=== PATIENT | female | born 1940 | race Caucasian/White ===

== ENCOUNTER 2019-11-21 13:19 | Outpatient (REF) | payer MEDICARE, OTHER, SELFPAY ==
[2019-11-21 16:35] LABS: Hemoglobin 12.9 g/dl (12.0-16.0); Mean Corpuscular HGB Conc 31.5 g/dl (31.0-35.0); Mean Corpuscular Hemoglobin 29.3 pg (27.0-33.0); Mean Platelet Volume 9.7 fL (9.4-12.3); Platelet Count 229 X10*3/uL (160-400); Red Blood Count 4.41 X10*6/uL (4.20-5.50); Red Cell Distribution Width 13.2 % (11.0-16.0); White Blood Count 7.3 X10*3/uL (4.8-10.8)
[2019-11-21 16:56] LABS: Anion Gap 10 (12-20); Blood Urea Nitrogen 21 mg/dL (9-16); Calcium 8.9 mg/dL (8.4-10.2); Carbon Dioxide 27 mmol/L (22-29); Chloride 108 mmol/L (96-108); Cholesterol 140 mg/dL; Estimated Glomerular Filt Rate 51; Glucose Random 72 mg/dL (60-115); HDL Cholesterol 51 mg/dL; LDL Cholesterol Calculated 69 mg/dl; Potassium 4.3 mmol/l (3.3-5.1); Sodium 141 mmol/L (135-145); Triglycerides 102 mg/dL
== END 2019-11-21 13:20 | disposition home or self-care (01) ==
LOC: HO.HMGCLDS 13:19
PROVIDERS: PCP Internal Medicine; Visit Provider Internal Medicine Cardiovascular Disease
DX: I25.119 Atherosclerotic heart disease of native coronary artery with unspecified angina pectoris (principal); I10 Essential (primary) hypertension
CPT/HCPCS: 36415; 80048; 80061; 85027

== ENCOUNTER 2020-03-25 | Outpatient (REF) | payer MEDICARE, OTHER, SELFPAY | END 2020-03-25 00:01 | disposition home or self-care (01) | LOC: HO.VC | PROVIDERS: Visit Provider Internal Medicine | DX: Z23 Encounter for immunization (principal) | CPT/HCPCS: 0011A ==

== ENCOUNTER 2020-04-14 16:24 | Outpatient (REF) | payer MEDICARE, OTHER, SELFPAY ==
--- NOTE | ~2020-04-14 | MM_ITS ---
EXAMINATION: MM SCREENING DIGITAL BREAST TOMOSYNTHESIS, BILATERAL CLINICAL INFORMATION: Screening. Asymptomatic. The lifetime risk of breast cancer based on the Tyrer-Cuzick Model is 3%. COMPARISON: Mammography: 09/21/2018, 08/08/2017, 05/27/2016 TECHNIQUE: Digital breast tomosynthesis is performed in both the craniocaudal and mediolateral oblique views along with computer-aided detection (CAD). Synthesized 2D images are generated from the tomosynthesis. FINDINGS: There are scattered areas of fibroglandular density (ACR BI-RADS breast composition Category b). Breast tissue composition borders on predominantly fatty. Background fibroglandular and stromal densities are stable. There is no interval mass or architectural abnormality. There is a dermal lesion overlying the mid outer right breast on CC view. There are scattered benign isolated and grouped round calcifications again noted. No significant changes. MM/MM tomosynthesis screening BI IMPRESSION: No mammographic evidence of malignancy. ASSESSMENT: BI-RADS 2: Benign RECOMMENDATION: Routine annual mammography screening. This patient's information was entered into a reminder system with a target due date for their next mammogram.
== END 2020-04-14 16:25 | disposition home or self-care (01) ==
LOC: HO.MAMMO 16:24
PROVIDERS: PCP Internal Medicine; Visit Provider Internal Medicine
DX: Z12.31 Encounter for screening mammogram for malignant neoplasm of breast (principal)
CPT/HCPCS: 77063; 77067

== ENCOUNTER 2020-04-21 | Outpatient (REF) | payer MEDICARE, OTHER, SELFPAY | END 2020-04-21 00:01 | disposition home or self-care (01) | LOC: HO.VC | PROVIDERS: Visit Provider Internal Medicine | DX: Z23 Encounter for immunization (principal) | CPT/HCPCS: 0012A ==

== ENCOUNTER → 2020-05-18 15:12 | Outpatient (BNVA) | payer MEDICARE, OTHER, SELFPAY | PROVIDERS: PCP Internal Medicine; Visit Provider Internal Medicine Cardiovascular Disease | DX: I25.10 Atherosclerotic heart disease of native coronary artery without angina pectoris (principal); I10 Essential (primary) hypertension | CPT/HCPCS: 93005; 99212 ==

== ENCOUNTER 2020-07-01 10:05 | Outpatient (REF) | payer MEDICARE, OTHER, SELFPAY ==
[2020-07-01 13:57] LABS: MANUAL DIFF FLAG NO
[2020-07-01 14:03] LABS: Basophils Percent Auto 0.6 % (0-2); Eosinophils Absolute Auto 0.1 X10*3/uL (0.0-0.4); Eosinophils Percent Auto 1.9 % (0-4); Hematocrit 42.1 % (37-47); Hemoglobin 13.2 g/dl (12.0-16.0); Imm Gran Abs Auto 0.04 X10*3/uL (0.00-0.03); Imm Gran Pct Auto 0.6 % (0.0-0.4); Lymphocytes Absolute Auto 1.8 X10*3/uL (1.2-4.9); Lymphocytes Percent Auto 26.3 % (20-40); Mean Corpuscular HGB Conc 31.4 g/dl (31.0-35.0); Mean Corpuscular Hemoglobin 29.3 pg (27.0-33.0); Mean Corpuscular Volume 93.3 fL (80-98); Mean Platelet Volume 9.8 fL (9.4-12.3); Monocytes Absolute Auto 0.6 X10*3/uL (0.1-1.2); Monocytes Percent Auto 7.9 % (2-11); Neutrophils Absolute Auto 4.3 X10*3/uL (2.0-8.3); Neutrophils Percent Auto 62.7 % (45-73); Platelet Count 245 X10*3/uL (160-400); Red Blood Count 4.51 X10*6/uL (4.20-5.50); Red Cell Distribution Width 14.1 % (11.0-16.0); White Blood Count 6.9 X10*3/uL (4.8-10.8)
[2020-07-01 14:48] LABS: Thyroid Stimulating Hormone 1.31 uIU/mL (0.32-4.0)
[2020-07-01 14:52] LABS: Alanine Aminotransferase 13 U/L (0-31); Albumin Level 3.8 g/dL (3.5-5.0); Alkaline Phosphatase 72 U/L (39-117); Anion Gap 12 (12-20); Aspartate Amino Transferase 18 U/L (5-31); Bilirubin Total 0.7 mg/dL (0.0-1.0); Blood Urea Nitrogen 22 mg/dL (9-16); Calcium 9.5 mg/dL (8.4-10.2); Carbon Dioxide 26 mmol/L (22-29); Chloride 109 mmol/L (96-108); Cholesterol 141 mg/dL; Estimated Glomerular Filt Rate 56; Glucose Fasting 89 mg/dL (60-99); HDL Cholesterol 51 mg/dL; LDL Cholesterol Calculated 76 mg/dl; Potassium 4.3 mmol/L (3.3-5.1); Sodium 143 mmol/L (135-145); Total Protein 5.8 g/dL (6.5-8.0); Triglycerides 74 mg/dL
[2020-07-05 13:36] LABS: Vitamin D 25-OH, D2 <4 ng/mL; Vitamin D 25-OH, D3 21 ng/mL; Vitamin D 25-OH, Total 21 ng/mL (30-100)
== END 2020-07-01 10:06 | disposition home or self-care (01) ==
LOC: HO.10HDL 10:05
PROVIDERS: Visit Provider Internal Medicine
DX: R53.83 Other fatigue (principal); R61 Generalized hyperhidrosis; E78.5 Hyperlipidemia, unspecified; I10 Essential (primary) hypertension; E55.9 Vitamin D deficiency, unspecified
CPT/HCPCS: 36415; 80053; 80061; 82306; 84443; 85025

== ENCOUNTER 2020-08-07 07:50 | Outpatient (REF) | payer MEDICARE, OTHER, SELFPAY ==
--- NOTE | ~2020-08-07 | MM_ITS ---
EXAMINATION: MM DIAGNOSTIC DIGITAL BREAST TOMOSYNTHESIS, RIGHT US DIAGNOSTIC ULTRASOUND BREAST, RIGHT CLINICAL INFORMATION: 79-year-old with palpable lump upper outer right breast. The lifetime risk of breast cancer based on the Tyrer-Cuzick Model is 2%. COMPARISON: Mammography: 04/14/2020, 09/21/2018 TECHNIQUE: Digital breast tomosynthesis is performed in both the craniocaudal and mediolateral oblique views along with computer-aided detection (CAD). Synthesized 2D images are generated from the tomosynthesis. Additional right MLO view is provided. Symptom marker placed over the site of palpable concern. Ultrasound is targeted to the area clinically palpable concern upper outer right breast. Grayscale imaging and color Doppler are performed without and with harmonics. FINDINGS: There are scattered areas of fibroglandular density (ACR BI-RADS breast composition Category b). Breast tissue composition borders on predominantly fatty. There is a new superficial subdermal irregular focal asymmetric density in area of palpable concern upper outer breast with overall size 1.3 x 1.2 x 0.7 cm. There is some internal mixed fat attenuation. There is no skin thickening or retraction. No associated calcification. Finding is new from recent mammography 04/14/2020. Ultrasound demonstrates an oval uniformly hyperechoic lesion just beneath the skin at site of palpable concern with overall dimensions 2.2 x 2.0 x 1.0 cm. There is fine peripheral decreased echogenicity and a few punctate cystic foci under 3 mm. Margins are macrolobulated. No definite increased or decreased through transmission of sound. There is no skin thickening or edema tracking in soft tissue planes. No hyperemia on color Doppler. No focal duct ectasia. Results are discussed with the patient and her daughter at time of visit. The imaging findings are most suggestive of posttraumatic fat necrosis. Patient was queried on trauma history. Although the patient does not recall a specific incident of trauma, she does note recent visible ecchymosis at the site of current palpable concern. The ecchymosis has subsequently resolved. Management plan is short interval follow-up right breast imaging in 3 months. MM/MM tomosynthesis diagnostic RT IMPRESSION: Mammographic and ultrasound findings at site of clinical concern are most suggestive of fat necrosis, sequela from prior trauma. Patient does recall transient ecchymosis at site of palpable concern. ASSESSMENT: BI-RADS 3: Probably Benign RECOMMENDATION: 1. Diagnostic right mammography in 3 months. 2. Targeted right breast ultrasound at same visit if warranted. This patient's information was entered into a reminder system with a target due date for their next mammogram.
== END 2020-08-07 07:51 | disposition home or self-care (01) ==
LOC: HO.MAMMO 07:50
PROVIDERS: Visit Provider Internal Medicine
DX: N63.11 Unspecified lump in the right breast, upper outer quadrant (principal)
CPT/HCPCS: 76642; 77061; 77065

== ENCOUNTER → 2020-10-27 13:39 | Outpatient (BNVA) | payer MEDICARE, OTHER, SELFPAY | PROVIDERS: PCP Internal Medicine; Referring Provider Internal Medicine; Visit Provider Internal Medicine Cardiovascular Disease | DX: I25.10 Atherosclerotic heart disease of native coronary artery without angina pectoris (principal); I10 Essential (primary) hypertension | CPT/HCPCS: 99212 ==

== ENCOUNTER 2020-11-09 13:21 | Outpatient (REF) | payer MEDICARE, OTHER, SELFPAY ==
--- NOTE | ~2020-11-09 | US_ITS ---
EXAMINATION: US DIAGNOSTIC ULTRASOUND BREAST, RIGHT CLINICAL INFORMATION: Three-month follow-up right breast lesion. COMPARISON: August 07, 2020. TECHNIQUE: Ultrasound of the breast is performed with real-time nunez scale imaging and color Doppler. FINDINGS: There is no focal suspicious finding. There is no solid mass, architectural abnormality, duct ectasia, or edema in the soft tissue planes. Results are discussed with the patient at time of visit. US/US breast RT limited IMPRESSION: No persistent ultrasound abnormality of the right breast. ASSESSMENT: BI-RADS 1: Negative RECOMMENDATION: Routine annual mammography screening due in 12 months. This patient's information was entered into a reminder system with a target due date for their next mammogram.
--- NOTE | ~2020-11-09 | MM_ITS ---
EXAMINATION: MM DIAGNOSTIC DIGITAL BREAST TOMOSYNTHESIS, RIGHT US TARGETED BREAST, RIGHT CLINICAL INFORMATION: Three-month follow up right breast lesion, question related to trauma. The lifetime risk of breast cancer based on the Tyrer-Cuzick Model is 2.2%. COMPARISON: Mammography: 08/07/2020 and studies dating back to 03/30/2013. TECHNIQUE: Digital breast tomosynthesis is performed in both the craniocaudal and mediolateral oblique views along with computer-aided detection (CAD). Synthesized 2-D images are generated from the tomosynthesis. Targeted right breast ultrasound. FINDINGS: The breasts are almost entirely fatty (ACR BI-RADS breast composition Category a). There are no significant masses, abnormal calcifications, or other abnormalities. ULTRASOUND: Targeted right breast ultrasound did not demonstrate any persistent abnormal mass and finding from previous study was likely related to trauma which has now healed. Results are provided to the patient at time of visit by the technologist. MM/MM tomosynthesis diagnostic RT IMPRESSION: No specific mammography or ultrasound findings to suggest malignancy. ASSESSMENT: BI-RADS 1: Negative. RECOMMENDATION: Routine annual mammography screening due in 12 months. This patient's information was entered into a reminder system with a target due date for their next mammogram.
== END 2020-11-09 13:22 | disposition home or self-care (01) ==
LOC: HO.MAMMO 13:21
PROVIDERS: PCP Internal Medicine; Visit Provider Internal Medicine
DX: N64.89 Other specified disorders of breast (principal)
CPT/HCPCS: 76642; 77061; 77065

== ENCOUNTER 2021-01-10 17:00 | Outpatient (REF) | payer MEDICARE, OTHER, SELFPAY ==
[2021-01-11 10:48] LABS: Appearance Urine CLOUDY; Color Urine YELLOW; Glucose Urine UA NEG (NEG); Leukocyte Esterase Urine TRACE (NEG); Nitrite Urine NEG (NEG); Specific Gravity - Urine >= 1.030 (1.005-1.025); UACC Culture Trigger YES; Urine Blood TRACE (NEG); Urine Ketones NEG (NEG); Urine Protein NEG (NEG-TRACE)
[2021-01-11 11:34] LABS: Amorphous Sediment Urine 2+ /LPF; Bacteria Urine 2+ /LPF; Calcium Oxalate Crystals Urine 1+ /LPF; Squamous Epithelial Cell Urine TRACE /LPF
== END 2021-01-10 17:01 | disposition home or self-care (01) ==
LOC: HO.10HDLNP 17:00
PROVIDERS: Visit Provider Nurse Practitioner Family
DX: I10 Essential (primary) hypertension (principal)
CPT/HCPCS: 81001; 87086

== ENCOUNTER → 2021-04-26 13:40 | Outpatient (BNVA) | payer MEDICARE, OTHER, SELFPAY | PROVIDERS: PCP Internal Medicine; Referring Provider Internal Medicine; Visit Provider Internal Medicine Cardiovascular Disease | DX: I25.10 Atherosclerotic heart disease of native coronary artery without angina pectoris (principal); I10 Essential (primary) hypertension; I44.4 Left anterior fascicular block | CPT/HCPCS: 93005; 99212 ==

== ENCOUNTER 2021-05-04 15:59 | Outpatient (REF) | payer MEDICARE, OTHER, SELFPAY ==
--- NOTE | ~2021-05-04 | XR_ITS ---
EXAMINATION: XR BILATERAL SHOULDER, CERVICAL SPINE AND RIGHT KNEE CLINICAL INFORMATION: Pain in shoulders, neck and the right knee. COMPARISON: None. TECHNIQUE: 4 views each shoulder. Right knee 2 views. Cervical spine 3 views. FINDINGS: Right shoulder: There is moderate loss of AC joint space with moderate periarticular spurring. The glenohumeral joint space is minimally reduced. No loose bodies or bony erosive changes seen. There is a vertical lucency adjacent to the AC joint suspicious for a fracture of indeterminate age. Left shoulder: There is moderate loss of AC joint space and mild loss of left glenohumeral joint space consistent with arthritis. There is mild periarticular hypertrophic changes left AC joint. No visible acute fracture, dislocation or lytic process seen. The soft tissues are normal. Cervical spine: There is anterior C5-C7 bony fusion with ventral plate extending from C5 through C7 vertebrae and intervening bone graft. The prevertebral and the paravertebral soft tissues are normal. Right knee: There is mild loss of tricompartment joint space with mild medial compartment periarticular spurring. No loose bodies, bony erosive changes or joint effusion seen. There is mild osteopenia. XR/XR cervical spine 3V IMPRESSION: [id number] degenerative changes right knee with mild periarticular spurring medial compartment. No joint effusion or acute fracture. Mild degenerative changes bilateral AC joints and right glenohumeral joint. There is suspicion of right distal clavicular fracture of indeterminate age. Fusion C5-C6 and C6-C7 disc levels with ventral plating and screws for ventral stabilization.
--- NOTE | ~2021-05-04 | XR_ITS ---
EXAMINATION: XR BILATERAL SHOULDER, CERVICAL SPINE AND RIGHT KNEE CLINICAL INFORMATION: Pain in shoulders, neck and the right knee. COMPARISON: None. TECHNIQUE: 4 views each shoulder. Right knee 2 views. Cervical spine 3 views. FINDINGS: Right shoulder: There is moderate loss of AC joint space with moderate periarticular spurring. The glenohumeral joint space is minimally reduced. No loose bodies or bony erosive changes seen. There is a vertical lucency adjacent to the AC joint suspicious for a fracture of indeterminate age. Left shoulder: There is moderate loss of AC joint space and mild loss of left glenohumeral joint space consistent with arthritis. There is mild periarticular hypertrophic changes left AC joint. No visible acute fracture, dislocation or lytic process seen. The soft tissues are normal. Cervical spine: There is anterior C5-C7 bony fusion with ventral plate extending from C5 through C7 vertebrae and intervening bone graft. The prevertebral and the paravertebral soft tissues are normal. Right knee: There is mild loss of tricompartment joint space with mild medial compartment periarticular spurring. No loose bodies, bony erosive changes or joint effusion seen. There is mild osteopenia. XR/XR knee RT 2V IMPRESSION: [id number] degenerative changes right knee with mild periarticular spurring medial compartment. No joint effusion or acute fracture. Mild degenerative changes bilateral AC joints and right glenohumeral joint. There is suspicion of right distal clavicular fracture of indeterminate age. Fusion C5-C6 and C6-C7 disc levels with ventral plating and screws for ventral stabilization.
--- NOTE | ~2021-05-04 | XR_ITS ---
EXAMINATION: XR BILATERAL SHOULDER, CERVICAL SPINE AND RIGHT KNEE CLINICAL INFORMATION: Pain in shoulders, neck and the right knee. COMPARISON: None. TECHNIQUE: 4 views each shoulder. Right knee 2 views. Cervical spine 3 views. FINDINGS: Right shoulder: There is moderate loss of AC joint space with moderate periarticular spurring. The glenohumeral joint space is minimally reduced. No loose bodies or bony erosive changes seen. There is a vertical lucency adjacent to the AC joint suspicious for a fracture of indeterminate age. Left shoulder: There is moderate loss of AC joint space and mild loss of left glenohumeral joint space consistent with arthritis. There is mild periarticular hypertrophic changes left AC joint. No visible acute fracture, dislocation or lytic process seen. The soft tissues are normal. Cervical spine: There is anterior C5-C7 bony fusion with ventral plate extending from C5 through C7 vertebrae and intervening bone graft. The prevertebral and the paravertebral soft tissues are normal. Right knee: There is mild loss of tricompartment joint space with mild medial compartment periarticular spurring. No loose bodies, bony erosive changes or joint effusion seen. There is mild osteopenia. XR/XR shoulder LT min 2V IMPRESSION: [id number] degenerative changes right knee with mild periarticular spurring medial compartment. No joint effusion or acute fracture. Mild degenerative changes bilateral AC joints and right glenohumeral joint. There is suspicion of right distal clavicular fracture of indeterminate age. Fusion C5-C6 and C6-C7 disc levels with ventral plating and screws for ventral stabilization.
--- NOTE | ~2021-05-04 | XR_ITS ---
EXAMINATION: XR BILATERAL SHOULDER, CERVICAL SPINE AND RIGHT KNEE CLINICAL INFORMATION: Pain in shoulders, neck and the right knee. COMPARISON: None. TECHNIQUE: 4 views each shoulder. Right knee 2 views. Cervical spine 3 views. FINDINGS: Right shoulder: There is moderate loss of AC joint space with moderate periarticular spurring. The glenohumeral joint space is minimally reduced. No loose bodies or bony erosive changes seen. There is a vertical lucency adjacent to the AC joint suspicious for a fracture of indeterminate age. Left shoulder: There is moderate loss of AC joint space and mild loss of left glenohumeral joint space consistent with arthritis. There is mild periarticular hypertrophic changes left AC joint. No visible acute fracture, dislocation or lytic process seen. The soft tissues are normal. Cervical spine: There is anterior C5-C7 bony fusion with ventral plate extending from C5 through C7 vertebrae and intervening bone graft. The prevertebral and the paravertebral soft tissues are normal. Right knee: There is mild loss of tricompartment joint space with mild medial compartment periarticular spurring. No loose bodies, bony erosive changes or joint effusion seen. There is mild osteopenia. XR/XR shoulder RT min 2V IMPRESSION: [id number] degenerative changes right knee with mild periarticular spurring medial compartment. No joint effusion or acute fracture. Mild degenerative changes bilateral AC joints and right glenohumeral joint. There is suspicion of right distal clavicular fracture of indeterminate age. Fusion C5-C6 and C6-C7 disc levels with ventral plating and screws for ventral stabilization.
== END 2021-05-04 16:00 | disposition home or self-care (01) ==
LOC: HO.XRAY 15:59
PROVIDERS: PCP Internal Medicine; Visit Provider Internal Medicine
DX: M25.561 Pain in right knee (principal); M25.512 Pain in left shoulder; M25.551 Pain in right hip
CPT/HCPCS: 72040; 73030; 73560

== ENCOUNTER 2021-05-19 15:35 | Outpatient (REF) | payer MEDICARE, OTHER, SELFPAY ==
[2021-05-19 15:53] LABS: MANUAL DIFF FLAG NO
[2021-05-19 16:03] LABS: Basophils Absolute Auto 0.1 X10*3/uL (0.0-0.2); Basophils Percent Auto 0.6 % (0-2); Eosinophils Absolute Auto 0.2 X10*3/uL (0.0-0.4); Eosinophils Percent Auto 1.9 % (0-4); Hematocrit 40.9 % (37.0-47.0); Hemoglobin 13.2 g/dl (12.0-16.0); Imm Gran Abs Auto 0.04 X10*3/uL (0.00-0.03); Imm Gran Pct Auto 0.5 % (0.0-0.4); Lymphocytes Absolute Auto 1.9 X10*3/uL (1.2-4.9); Lymphocytes Percent Auto 22.8 % (20-40); Mean Corpuscular HGB Conc 32.3 g/dl (31.0-35.0); Mean Corpuscular Hemoglobin 29.8 pg (27.0-33.0); Mean Corpuscular Volume 92.3 fL (80.0-98.0); Mean Platelet Volume 8.9 fL (9.4-12.3); Monocytes Absolute Auto 0.6 X10*3/uL (0.1-1.2); Monocytes Percent Auto 7.3 % (2-11); Neutrophils Absolute Auto 5.6 x10*3/uL (2.0-8.3); Neutrophils Percent Auto 66.9 % (45-73); Platelet Count 234 X10*3/uL (160-400); Red Blood Count 4.43 X10*6/uL (4.20-5.50); White Blood Count 8.4 X10*3/uL (4.8-10.8)
[2021-05-19 16:40] LABS: Alanine Aminotransferase 12 U/L (0-31); Albumin Level 3.8 g/dL (3.5-5.0); Alkaline Phosphatase 69 U/L (39-117); Anion Gap 13 (12-20); Aspartate Amino Transferase 17 U/L (5-31); Bilirubin Total 0.8 mg/dL (0.0-1.0); Blood Urea Nitrogen 22 mg/dL (9-16); Calcium 9.6 mg/dL (8.4-10.2); Carbon Dioxide 22 mmol/L (22-29); Chloride 109 mmol/L (96-108); Cholesterol 146 mg/dL; Estimated Glomerular Filt Rate > 60; Glucose Fasting 100 mg/dL (60-99); HDL Cholesterol 48 mg/dL; LDL Cholesterol Calculated 79 mg/dl; Potassium 4.1 mmol/L (3.3-5.1); Sodium 140 mmol/L (135-145); Total Protein 6.2 g/dL (6.5-8.0); Triglycerides 95 mg/dL
[2021-05-23 13:11] LABS: Vitamin D 25-OH, D2 <4 ng/mL; Vitamin D 25-OH, D3 31 ng/mL; Vitamin D 25-OH, Total 31 ng/mL (30-100)
== END 2021-05-19 15:36 | disposition home or self-care (01) ==
LOC: HO.LAB 15:35
PROVIDERS: PCP Internal Medicine; Visit Provider Internal Medicine
DX: E55.9 Vitamin D deficiency, unspecified (principal); E78.5 Hyperlipidemia, unspecified; M79.18 Myalgia, other site
CPT/HCPCS: 36415; 80053; 80061; 82306; 85025

== ENCOUNTER 2021-07-23 12:28 | Outpatient (REF) | payer MEDICARE, OTHER, SELFPAY ==
--- NOTE | ~2021-07-23 | MM_ITS ---
EXAMINATION: MM SCREENING DIGITAL BREAST TOMOSYNTHESIS, BILATERAL CLINICAL INFORMATION: Screening. Asymptomatic. The lifetime risk of breast cancer based on the Tyrer-Cuzick Model is 2.7%. COMPARISON: Mammography: November 09, 2020 and studies dating back to March 30, 2013 TECHNIQUE: Digital breast tomosynthesis is performed in both the craniocaudal and mediolateral oblique views along with computer-aided detection (CAD). Synthesized 2D images are generated from the tomosynthesis. FINDINGS: The breasts are almost entirely fatty (ACR BI-RADS breast composition Category a). There are no significant masses, abnormal calcifications, or other abnormalities. MM/MM tomosynthesis screening BI IMPRESSION: There are no significant changes from prior study. ASSESSMENT: BI-RADS 1: Negative RECOMMENDATION: Routine annual mammography screening. This patient's information was entered into a reminder system with a target due date for their next mammogram.
== END 2021-07-23 12:29 | disposition home or self-care (01) ==
LOC: HO.MAMMO 12:28
PROVIDERS: Visit Provider Internal Medicine
DX: Z12.31 Encounter for screening mammogram for malignant neoplasm of breast (principal)
CPT/HCPCS: 77063; 77067

== ENCOUNTER → 2021-11-08 13:46 | Outpatient (BNVA) | payer MEDICARE, OTHER, SELFPAY | PROVIDERS: PCP Internal Medicine; Referring Provider Internal Medicine; Visit Provider Internal Medicine Cardiovascular Disease | DX: I25.10 Atherosclerotic heart disease of native coronary artery without angina pectoris (principal); I10 Essential (primary) hypertension | CPT/HCPCS: 93005; 99212 ==

== ENCOUNTER → 2022-05-02 13:48 | Outpatient (BNVA) | payer MEDICARE, OTHER, SELFPAY | PROVIDERS: PCP Internal Medicine; Referring Provider Nurse Practitioner Family; Visit Provider Internal Medicine Cardiovascular Disease | DX: I25.10 Atherosclerotic heart disease of native coronary artery without angina pectoris (principal); I10 Essential (primary) hypertension; Z79.82 Long term (current) use of aspirin; Z79.899 Other long term (current) drug therapy | CPT/HCPCS: 99212 ==

== ENCOUNTER 2022-08-29 16:42 | Outpatient (AMB) | payer MEDICARE, OTHER, SELFPAY ==
--- NOTE | 2022-08-29 16:43 | A.OFFPC_ITS ---
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 Accompanied by: Self / Same As Patient Allergies bupropion Allergy (Intermediate, Verified 08/29/22 17:02) jittery Medication List - Last Reconciled 08/29/22 by Maria Luz Jackson MD aspirin (Adult Low Dose Aspirin) 81 mg PO DAILY cholecalciferol (vitamin D3) 25 mcg PO DAILY escitalopram oxalate 10 mg PO DAILY 90 days ibuprofen 800 mg PO Q6H PRN isosorbide mononitrate ER 30 mg PO DAILY lidocaine 5% (Lidoderm) 1 patch topical DAILY lorazepam 1 mg PO BID PRN 30 days losartan 25 mg PO DAILY metoprolol succinate ER 100 mg PO DAILY nitroglycerin 0.4 mg sublingual Q5M PRN nystatin 1 appl topical BID simvastatin 40 mg PO BEDTIME Tobacco use date assessed: 03/23/22 Fall risk assessment: No Falls in past year Last assessed Fall Risk: 08/29/22 Dental Screening Dental Screen Date: 08/29/22 Did you have a dental visit in the last 12 months?: No Did you have a dental problem in the last 6 months where you did not have access to dental care?: No Was dental information given to patient?: Patient has dentist HPI HPI Comments History of Present Illness Details This is an 81-year-old female with hypertension, dyslipidemia, mild recurrent major depression and generalized anxiety disorder that comes today alone in the room for follow-up on her conditions. Blood pressure stable. Lipid panel was ordered. Depression and anxiety has been stable with escitalopram. Use benzodiazepines as needed for anxiety and she is aware that can cause addiction and sedation. Walks with a walker for gait stability. Complains of hair loss and dyspnea on exertion. Follows with cardiology due to coronary artery disease. [facility] Medical History (Updated 08/29/22 @ 17:12 by Maria Luz Jackson MD) Breast mass CAD (coronary artery disease) Clavicle fracture Depression with anxiety Dyslipidemia Fatigue OCTAVIO (generalized anxiety disorder) HTN (hypertension) Intertrigo Left shoulder pain Mild recurrent major depression Night sweats Rash Right knee pain Right shoulder pain Surgical History History of total abdominal hysterectomy and bilateral salpingo-oophorectomy History of vein stripping Family History Father CAD (coronary artery disease) CVD (cardiovascular disease) Myocardial infarction Mother CAD (coronary artery disease) Myocardial infarction CVD (cardiovascular disease) Son No problems noted. Daughter No problems noted. Social History Housing: Apartment Alcohol intake: current Alcohol intake frequency: holidays/special occasions only Patient Tobacco Use Status: Former Tobacco user e-Cigarette/Vaping Use: Never Used Second Hand Smoke Exposure: Yes service: No Current occupational status: retired Cognitive needs: Yes Hearing needs: No Vision needs: Yes Questionnaire Thrive Questionnaire Date Thrive assessed: 03/23/22 OCTAVIO-7 AMB Questionnaire OCTAVIO-7 Date OCTAVIO - 7 assessed: 03/23/22 (pt taking anxiety medication ) Source: Developed by Drs. Stoney Martinez, Rizwana Manuel, aLz Walker and colleagues, with an educational presley from [employer]. Review of Systems Const All systems reviewed & are unremarkable except as noted in HPI and below Eyes Reports no additional complaints, Denies change in vision and Denies other visual disturbances Card Denies chest pain at rest, Denies chest pain with activity, Denies edema, Denies irregular heart rhythm, Denies claudication, Denies dyspnea, Denies dyspnea on exertion, Denies orthopnea, Denies paroxysmal nocturnal dyspnea and Denies slow heart rate Resp Denies cough, Denies dyspnea and Denies dyspnea on exertion GI Denies abdominal pain, Denies change in bowel habits, Denies excessive flatus, Denies nausea and Denies vomiting Denies urinary incontinence, Denies urinary hesitancy and Denies urinary urgency Musc Denies abnormal gait, Denies atrophy, Denies deformity and Denies limited range of motion Skin/Breast Denies bleeding lesions, Denies changing lesions and Denies rash Neuro Denies abnormal gait and Denies lack of coordination Physical exam (Primary Care) Vital Signs: Last Vital Signs Pulse 64 08/29/22 16:44 BP 120/64 08/29/22 16:44 Pulse Ox 96 08/29/22 16:44 Oxygen Delivery Method Room Air 08/29/22 16:44 Tobacco/Smoking Status: Tobacco use Status Tobacco use date assessed 03/23/22 08/29/22 16:53 Patient Tobacco Use Status Former Tobacco user 08/29/22 16:53 e-Cigarette/Vaping Use Never Used 08/29/22 16:53 Thrive Assessment: Date of Thrive Assessment Date Thrive assessed 03/23/22 08/29/22 16:53 Const Limitations: ambulation with walker Eyes General: appearance normal, both eyes and all related structures Eyelids: Yes eyelids normal Conjunctivae: conjunctivae normal Neck Neck: Yes normal visual inspection and Yes supple Resp Effort & Inspection: normal respiratory effort Auscultation: clear to auscultation bilaterally Cardio Jugular venous distension: no JVD Rate: regular rate Rhythm: regular rhythm Heart sounds: S1 normal heart sound present and S2 normal heart sound present Extrem General: Yes full ROM Assessment and Plan Assessment & Plan (1) Mild recurrent major depression: Code(s): F33.0 - Major depressive disorder, recurrent, mild Plan: Continue escitalopram. (2) HTN (hypertension): Code(s): I10 - Essential (primary) hypertension Qualifiers: Hypertension type: essential hypertension Qualified Code(s): I10 - Essential (primary) hypertension Plan: Continue losartan. Blood pressure goal is equal or less than 130/80. (3) Dyslipidemia: Code(s): E78.5 - Hyperlipidemia, unspecified Plan: Continue statins. Repeat lipid panel. (4) OCTAVIO (generalized anxiety disorder): Code(s): F41.1 - Generalized anxiety disorder Plan: Continue escitalopram Orders: Orders Vitamin D 25-OH Total Today E55.9 - Vitamin D deficiency, unspecified, R53.83 - Other fatigue Vitamin B12 and Folate Today E53.8 - Deficiency of other specified B group vitamins, R53.83 - Other fatigue Complete Blood Count Auto Diff Today R53.83 - Other fatigue Lipid Panel Today E78.5 - Hyperlipidemia, unspecified, I10 - Essential (primary) hypertension Comprehensive Black. Panel Fast Today I10 - Essential (primary) hypertension Thyroid Stimulating Hormone Today R53.83 - Other fatigue Medications: New ketoconazole 2% 1 appl topical BID 60 grams 3RF 30 days Coding Level of Care Code Est Pt Level 4 (90834) Diagnoses Mild recurrent major depression F33.0 HTN (hypertension) I10 Hypertension type: essential hypertension Dyslipidemia E78.5 OCTAVIO (generalized anxiety disorder) F41.1 Time Spent (min) 23
[2022-08-29 16:44] VITALS: BP 120/64; PULSE 64; O2SAT 96
== END 2022-08-29 17:23 | disposition home or self-care (01) ==
PROVIDERS: Visit Provider Internal Medicine
DX: F33.0 Major depressive disorder, recurrent, mild (principal); I10 Essential (primary) hypertension; E78.5 Hyperlipidemia, unspecified; F41.1 Generalized anxiety disorder
CPT/HCPCS: 99214

== ENCOUNTER 2022-08-31 15:52 | Outpatient (REF) | payer MEDICARE, OTHER, SELFPAY ==
--- NOTE | ~2022-08-31 | MM_ITS ---
EXAMINATION: MM SCREENING DIGITAL BREAST TOMOSYNTHESIS, BILATERAL CLINICAL INFORMATION: Screening. Asymptomatic. The lifetime risk of breast cancer based on the Tyrer-Cuzick Model is 1.6%. COMPARISON: Mammography: This study is compared with prior exams dating back to 2019. TECHNIQUE: Digital breast tomosynthesis is performed in both the craniocaudal and mediolateral oblique views along with computer-aided detection (CAD). Synthesized 2D images are generated from the tomosynthesis. FINDINGS: The breasts are almost entirely fatty (ACR BI-RADS breast composition Category a). There are no significant masses, abnormal calcifications, or other abnormalities. MM/MM tomosynthesis screening BI IMPRESSION: No mammographic evidence of malignancy. ASSESSMENT: BI-RADS BI-RADS 1 - Negative RECOMMENDATION: Routine annual mammography screening. 1 year F/U This examination should not preclude the clinical evaluation of a suspicious palpable abnormality. This patient's information was entered into a reminder system with a target due date for their next mammogram.
== END 2022-08-31 15:53 | disposition home or self-care (01) ==
LOC: HO.MAMMO 15:52
PROVIDERS: PCP Internal Medicine; Visit Provider Internal Medicine
DX: Z12.31 Encounter for screening mammogram for malignant neoplasm of breast (principal)
CPT/HCPCS: 77063; 77067

== ENCOUNTER → 2022-08-31 16:00 | Outpatient (BNV) | payer MEDICARE, OTHER, SELFPAY | PROVIDERS: PCP Internal Medicine; Visit Provider Radiology Diagnostic Radiology | DX: Z12.31 Encounter for screening mammogram for malignant neoplasm of breast (principal) | CPT/HCPCS: 77063; 77067 ==

== ENCOUNTER 2022-09-05 12:02 | Outpatient (REF) | payer MEDICARE, OTHER, SELFPAY ==
[2022-09-05 13:17] LABS: MANUAL DIFF FLAG NO
[2022-09-05 13:25] LABS: Basophils Absolute Auto 0.1 X10*3/uL (0.0-0.2); Basophils Percent Auto 0.9 % (0-2); Eosinophils Absolute Auto 0.2 X10*3/uL (0.0-0.4); Eosinophils Percent Auto 2.5 % (0-4); Hematocrit 43.7 % (37.0-47.0); Hemoglobin 13.7 g/dl (12.0-16.0); Imm Gran Abs Auto 0.03 X10*3/uL (0.00-0.03); Imm Gran Pct Auto 0.4 % (0.0-0.4); Lymphocytes Absolute Auto 1.7 X10*3/uL (1.2-4.9); Lymphocytes Percent Auto 21.1 % (20-40); Mean Corpuscular HGB Conc 31.4 g/dl (31.0-35.0); Mean Corpuscular Volume 95.6 fL (80.0-98.0); Mean Platelet Volume 9.5 fL (9.4-12.3); Monocytes Absolute Auto 0.7 X10*3/uL (0.1-1.2); Monocytes Percent Auto 8.5 % (2-11); Neutrophils Absolute Auto 5.3 x10*3/uL (2.0-8.3); Neutrophils Percent Auto 66.6 % (45-73); Platelet Count 260 X10*3/uL (160-400); Red Blood Count 4.57 X10*6/uL (4.20-5.50); Red Cell Distribution Width 13.6 % (11.0-16.0)
[2022-09-05 13:54] LABS: Alanine Aminotransferase 12 U/L (0-31); Albumin Level 3.9 g/dL (3.5-5.0); Alkaline Phosphatase 73 U/L (39-117); Anion Gap 11 (12-20); Aspartate Amino Transferase 20 U/L (5-31); Bilirubin Total 0.8 mg/dL (0.0-1.0); Blood Urea Nitrogen 22 mg/dL (9-16); Calcium 10.3 mg/dL (8.4-10.2); Carbon Dioxide 28 mmol/L (22-29); Chloride 108 mmol/L (96-108); Cholesterol 141 mg/dL; Estimated Glomerular Filt Rate 54; Glucose Fasting 93 mg/dL (60-99); HDL Cholesterol 52 mg/dL; LDL Cholesterol Calculated 74 mg/dl; Potassium 4.4 mmol/L (3.3-5.1); Sodium 143 mmol/L (135-145); Thyroid Stimulating Hormone 1.11 uIU/mL (0.32-4.0); Total Protein 6.6 g/dL (6.5-8.0); Triglycerides 77 mg/dL
[2022-09-05 14:09] LABS: Folate 13.6 ng/mL (> or = 4.0); Vitamin B12 362 pg/mL (200-900)
[2022-09-05 14:29] LABS: Vitamin D 25-OH Total 40.2 ng/mL (>30)
== END 2022-09-05 12:03 | disposition home or self-care (01) ==
LOC: HO.10HDL 12:02
PROVIDERS: Visit Provider Internal Medicine
DX: E55.9 Vitamin D deficiency, unspecified (principal); R53.83 Other fatigue; I10 Essential (primary) hypertension; E78.5 Hyperlipidemia, unspecified; E53.8 Deficiency of other specified B group vitamins
CPT/HCPCS: 36415; 80053; 80061; 82306; 82607; 82746; 84443; 85025

== ENCOUNTER 2022-10-25 14:15 | Outpatient (AMB) | payer MEDICARE, OTHER, SELFPAY ==
[2022-10-25 14:17] VITALS: BP 120/80; PULSE 75; BMI 31.5
--- NOTE | 2022-10-25 14:17 | MHC.OFFVIS ---
Intake Vital Signs 10/25/22 14:17 Height 5 ft 5 in Weight 189 lb 9.561 oz BMI 31.5 BP 120/80 Blood Pressure Location Lt brachial Position Sitting Pulse 75 Intake Visit Reasons: 6 month follow up Intake Note: 6 month follow-up c/o fatigue and hand numbness Meeting Specialist Required: No Allergies bupropion Allergy (Intermediate, Verified 08/29/22 17:02) jittery Medication List - Last Reconciled 10/25/22 by Murray Fuller MD aspirin (Adult Low Dose Aspirin) 81 mg PO DAILY cholecalciferol (vitamin D3) 25 mcg PO DAILY escitalopram oxalate 10 mg PO DAILY 90 days ibuprofen 800 mg PO Q6H PRN isosorbide mononitrate ER 30 mg PO DAILY ketoconazole 2% 1 appl topical BID 30 days lidocaine 5% (Lidoderm) 1 patch topical DAILY lorazepam 1 mg PO BID PRN 30 days losartan 25 mg PO DAILY metoprolol succinate ER 100 mg PO DAILY nitroglycerin 0.4 mg sublingual Q5M PRN nystatin 1 appl topical BID simvastatin 40 mg PO BEDTIME HPI HPI Comments History of Present Illness Details Edie comes for follow-up. She denies any active cardiac issues. Takes all her medications. Denies any progressive shortness of breath, orthopnea, PND, leg edema. She does complain of fatigue but says that this probably related to deconditioning as she does not exercise much. She complains of bilateral hand numbness. Denies any prolonged palpitations, irregular heartbeat, lightheadedness, syncope. [facility] Medical History Breast mass CAD (coronary artery disease) Clavicle fracture Depression with anxiety Dyslipidemia Fatigue OCTAVIO (generalized anxiety disorder) HTN (hypertension) Intertrigo Left shoulder pain Mild recurrent major depression Night sweats Rash Right knee pain Right shoulder pain Surgical History History of total abdominal hysterectomy and bilateral salpingo-oophorectomy History of vein stripping Family History Father CAD (coronary artery disease) CVD (cardiovascular disease) Myocardial infarction Mother CAD (coronary artery disease) Myocardial infarction CVD (cardiovascular disease) Son No problems noted. Daughter No problems noted. Social History Housing: Apartment Alcohol intake: current Alcohol intake frequency: holidays/special occasions only Patient Tobacco Use Status: Former Tobacco user e-Cigarette/Vaping Use: Never Used Second Hand Smoke Exposure: Yes service: No Current occupational status: retired Cognitive needs: Yes Hearing needs: No Vision needs: Yes Review of Systems Const Denies chills, Denies fatigue, Denies fever(s), Denies frequent falls, Denies weakness, Denies weight gain and Denies weight loss ENT Denies dizziness Card Denies chest pain, Denies leg edema, Denies lightheadedness, Denies palpitations, Denies dyspnea, Denies dyspnea on exertion, Denies orthopnea and Denies other (loss of consciousness) Resp Denies cough, Denies dyspnea and Denies dyspnea on exertion GI Denies hematochezia and Denies change in stool character Musc Denies abnormal gait, Denies muscle weakness, Denies numbness, Denies radiating pain into limb and Denies tingling Neuro Denies abnormal gait, Denies dizziness, Denies frequent falls, Denies numbness, Denies tingling and Denies weakness Endo Denies fatigue and Denies palpitations Physical Exam Vital Signs: Last Vital Signs Pulse 75 10/25/22 14:17 BP 120/80 10/25/22 14:17 BMI result Body Mass Index 31.5 Const General: cooperative, comfortable, alert and awake Nutritional Appearance: obese Orientation/consciousness: patient oriented x3 Limitations: ambulation with walker Neck Neck: Yes trachea midline, Yes supple and Yes no JVD Resp Effort & Inspection: normal respiratory effort Auscultation: clear to auscultation bilaterally Cardio Jugular venous distension: no JVD Palpation: normal PMI Rate: regular rate Rhythm: regular rhythm Heart sounds: S1 normal heart sound present and S2 normal heart sound present Skin General skin exam: no rashes or lesions noted and ecchymosis Neuro General: patient oriented x3 and no focal motor deficits Extrem General: Yes no clubbing, cyanosis or edema Psych Appearance: grossly normal Office Procedures EKG Details: EKG shows normal sinus rhythm with left anterior fascicular block at 75 beats per minute [id number], Complete Assessment & Plan Assessment & Plan (1) CAD (coronary artery disease): Code(s): I25.10 - Atherosclerotic heart disease of tribe coronary artery without angina pectoris Qualifiers: Coronary Disease-Associated Artery/Lesion type: [place] artery [place] vs. transplanted heart: tribe heart Associated angina: angina presence unspecified Qualified Code(s): I25.10 - Atherosclerotic heart disease of tribe coronary artery without angina pectoris Plan: CAD with stable coronary artery disease with heavily calcified significant stenosis similarly the, with no recurrent symptoms on dual antianginal therapy. No acute coronary syndrome. Continue lifelong aspirin therapy. Continue current dual antianginal therapy. Continue current statin therapy with LDL well optimized. Increase activity level suggested. (2) HTN (hypertension): Code(s): I10 - Essential (primary) hypertension Qualifiers: Hypertension type: essential hypertension Qualified Code(s): I10 - Essential (primary) hypertension Plan: Hypertension which is currently well optimized advised to monitor blood pressure at home maintain a log. Goal blood pressure less than 130/84. Low-salt diet was discussed. Continue participate in physical activity as tolerated. Will follow up in the clinic in 1 year's time, sooner p.r.n.. Thank you for allowing me to partake in her care Coding Level of Care Code Est Pt Level 4 (58020) Diagnoses CAD (coronary artery disease) I25.10 Coronary Disease-Associated Artery/Lesion type: [place] artery [place] vs. transplanted heart: tribe heart Associated angina: angina presence unspecified HTN (hypertension) I10 Hypertension type: essential hypertension CPT Codes EKG - CPT: 26523-[id number], Complete ([id number])
== END 2022-10-25 14:48 | disposition home or self-care (01) ==
PROVIDERS: PCP Internal Medicine; Referring Provider Internal Medicine; Visit Provider Internal Medicine Cardiovascular Disease
DX: I25.10 Atherosclerotic heart disease of native coronary artery without angina pectoris (principal); I10 Essential (primary) hypertension
CPT/HCPCS: 93010; 99214

== ENCOUNTER → 2022-10-25 14:15 | Outpatient (BNVA) | payer MEDICARE, OTHER, SELFPAY | PROVIDERS: PCP Internal Medicine; Referring Provider Internal Medicine; Visit Provider Internal Medicine Cardiovascular Disease | DX: I25.10 Atherosclerotic heart disease of native coronary artery without angina pectoris (principal); I10 Essential (primary) hypertension; Z79.82 Long term (current) use of aspirin; Z79.899 Other long term (current) drug therapy | CPT/HCPCS: 93005; 99212 ==

== ENCOUNTER 2023-02-02 16:29 | Outpatient (AMB) | payer MEDICARE, OTHER, SELFPAY ==
[2023-02-02 16:31] VITALS: BP 110/58; PULSE 74; O2SAT 95
--- NOTE | 2023-02-02 16:31 | A.OFFVIS_ITS ---
Intake Vital Signs 02/02/23 16:31 Height 5 ft 5 in BMI Reason not done Patient refused/unable BP 110/58 L Blood Pressure Location Lt brachial Position Sitting Pulse 74 Pulse Source Pulse Oximeter Pulse Oximetry (%) 95 Oxygen Delivery Method Room Air Intake Visit Reasons: [facility] [employer]or Required: No Allergies bupropion Allergy (Intermediate, Verified 02/02/23 16:46) jittery Medication List - Last Reconciled 02/02/23 by BEULAH Hernandez aspirin (Adult Low Dose Aspirin) 81 mg PO DAILY cholecalciferol (vitamin D3) 25 mcg PO DAILY escitalopram oxalate 10 mg PO DAILY 90 days ibuprofen 800 mg PO Q6H PRN isosorbide mononitrate ER 30 mg PO DAILY ketoconazole 2% 1 appl topical BID 30 days lidocaine 5% (Lidoderm) 1 patch topical DAILY lorazepam 1 mg PO BID PRN 30 days losartan 25 mg PO DAILY metoprolol succinate ER 100 mg PO DAILY nitroglycerin 0.4 mg sublingual Q5M PRN nystatin 1 appl topical BID simvastatin 40 mg PO BEDTIME HPI [facility] HPI Details Patient is an 82-year-old female who presents today for subsequent wellness visit. Patient of Dr. Franklin. Today we discussed patient's need for bone density screening and tetanus vaccine, patient declined. Mammogram normal 08/2022. [place] of care was reviewed with the patient and she was provided with a screening schedule. End of life planning was discussed with the patient and she was provided with healthcare proxy and MOLST forms. [facility] Medical History (Updated 02/03/23 @ 08:38 by BEULAH Hernandez) Cough Clavicle fracture Right shoulder pain Left shoulder pain Right knee pain OCTAVIO (generalized anxiety disorder) Mild recurrent major depression Breast mass Night sweats Fatigue HTN (hypertension) Depression with anxiety CAD (coronary artery disease) Rash Intertrigo Dyslipidemia Surgical History History of total abdominal hysterectomy and bilateral salpingo-oophorectomy History of vein stripping Family History Father CAD (coronary artery disease) CVD (cardiovascular disease) Myocardial infarction Mother CAD (coronary artery disease) Myocardial infarction CVD (cardiovascular disease) Son No problems noted. Daughter No problems noted. Social History Housing: Apartment Alcohol intake: current Alcohol intake frequency: holidays/special occasions only Patient Tobacco Use Status: Former Tobacco user e-Cigarette/Vaping Use: Never Used Second Hand Smoke Exposure: Yes service: No Current occupational status: retired Cognitive needs: Yes Hearing needs: No Vision needs: Yes Questionnaire Medicare Wellness Checkup What is your age?: 81 or older What gender do you identify with?: female During the past 4 weeks, how much have you been bothered by emotional problems such as feeling anxious, depressed, irritable, sad or downhearted, and blue?: quite a bit During the past 4 weeks, has your physical & emotional health limited your social activities with family, friends, neighbors, or groups?: quite a bit During the past 4 weeks, how much bodily pain have you generally had?: severe pain During the past 4 weeks, was someone available to help you if you needed & wanted help?: yes, some During the past 4 weeks, what was the hardest physical activity you could do for at least 2 minutes?: moderate Can you get to places out of walking distance without help? (For eg., can you travel alone on buses, taxis or drive your car?): No Can you go shopping for groceries or clothes without someone's help?: No Can you prepare your own meals?: Yes Can you do your housework without help?: No Because of any health problems, do you need the help of another person with your personal care needs such as eating, bathing, dressing or getting around the house?: No Can you handle your own money without help?: Yes During the past 4 weeks, how would you rate your health in general?: fair During the past 4 weeks how have things been going for you?: good & bad parts about equal Are you having difficulties driving your car?: not applicable, I don't use a car Do you always fasten your seat belt when you are in a car?: yes, usually During past 4 weeks, have you been bothered by the following: never: Falling or dizzy when standing up, Sexual problems?, Trouble eating well?, Teeth or denture problems? and Problems using the telephone? and always: Tiredness or fatigue? (tired) Have you fallen 2 or more times in the past year?: No Are you afraid of falling?: Yes Are you a smoker?: no During the past 4 weeks, how many drinks of wine, beer, or other alcoholic beverages did you have?: 1 drink or less per week Do you exercise for about 20 minutes 3 or more times a week?: yes, most of the time Have you been given information to help with the following?: yes: Hazards in your house that might hurt you? and yes: Keeping track of your medications? How often do you have trouble taking medicines the way you have been told to take them?: I always take medicine as prescribed How confident are you that you can control & manage most of your health problems?: somewhat confident What is your race?: White Mini Mental State Exam (MMSE) Orientation What is the (year) (season) (date) (day) (month)?: year, season, date, day and month Score Score: 5 Activity of Daily Living Bathing - sponge bath, tub bath or shower: receives no assistance (gets in/out by self, if usual bathing means Dressing - getting clothes from closets & drawers, including inner/outer garments & fasteners.: gets clothes & gets completely dressed without help Toileting - going to the 'toilet room' for urine/bowel elimination & cleaning self/arranging clothes: goes to toilet room, cleans self, arranges clothes without help Transfer: moves in & out of bed and chair without help (may use support object) Continence: controls urination/bowel movements completely by self Feeding: feeds self without help Total Score: 0 Information obtained from: patient Using telephone: independent Traveling: dependent Shopping: needs assistance Preparing meals: independent Housework: needs assistance Taking medicine: independent Managing money: independent PHQ-9 Over the last 2 weeks, how often have you been bothered by any of the following problems? 1. Little interest or pleasure in doing things: not at all 2. Feeling down, depressed, or hopeless: nearly every day 3. Trouble falling or staying asleep, or sleeping too much: several days 4. Feeling tired or having little energy: more than half the days 5. Poor appetite or overeating: more than half the days 6. Feeling bad about yourself - or that you are a failure or have let yourself or your family down: not at all 7. Trouble concentrating on things, such as reading the newspaper or watching television: not at all 8. Moving or speaking so slowly that other people could have noticed. Or the opposite - being so fidgety or restless that you have been moving around a lot more than usual: not at all 9. Thoughts that you would be better off or of hurting yourself in some way: not at all Total score: 8 Depression Screening Interpretation: Positive Depression Screening Follow-up: Existing condition and In treatment Depression Screening Done: Yes 34397 - PHQ-9 Billing: Yes Source: Developed by Drs. Stoney Martinez, Rizwana Manuel, Laz Walker and colleagues, with an educational presley from [employer]. Physical Exam Vital Signs: Last Vital Signs Pulse 74 02/02/23 16:31 BP 110/58 L 02/02/23 16:31 Pulse Ox 95 02/02/23 16:31 Oxygen Delivery Method Room Air 02/02/23 16:31 Const General: cooperative and no acute distress Orientation/consciousness: patient oriented x3 HEENT Other: Whisper test: pass Neuro Other: Balance: Normal - patient ambulates with a rolling walker Get up and walk: unable to Romberg: negative Tandem gait: unable to General: patient oriented x3 Assessment & Plan Assessment & Plan (1) OCTAVIO (generalized anxiety disorder): Code(s): F41.1 - Generalized anxiety disorder Plan: Stable On lorazepam p.r.n.-educated about dependency and memory loss (2) Mild recurrent major depression: Code(s): F33.0 - Major depressive disorder, recurrent, mild Plan: Stable (3) HTN (hypertension): Code(s): I10 - Essential (primary) hypertension Qualifiers: Hypertension type: essential hypertension Qualified Code(s): I10 - Essential (primary) hypertension Plan: Continue current treatment Low-sodium diet (4) CAD (coronary artery disease): Code(s): I25.10 - Atherosclerotic heart disease of [place] coronary artery without angina pectoris Qualifiers: Coronary Disease-Associated Artery/Lesion type: [place] artery [place] vs. transplanted heart: [place] heart Associated angina: angina presence unspecified Qualified Code(s): I25.10 - Atherosclerotic heart disease of [place] coronary artery without angina pectoris Plan: Continue to follow-up with [facility] (5) Dyslipidemia: Code(s): E78.5 - Hyperlipidemia, unspecified Plan: Continue current treatment Low-cholesterol diet (6) Adult general medical exam: Code(s): Z00.00 - Encounter for general adult medical examination without abnormal findings Plan: Repeat in 1 year Medications: Refilled nystatin 1 appl topical BID 15 grams 0RF lorazepam 1 mg PO BID PRN 60 tabs 0RF anxiety 30 days Quality Reporting (2019) Depression/Bipolar (159/160/161/177) PHQ-9: Total score: 8 Coding Level of Care Code Medicare Subsequent (G0439) Diagnoses OCTAVIO (generalized anxiety disorder) F41.1 Mild recurrent major depression F33.0 Essential hypertension I10 Hypertension type: essential hypertension Coronary artery disease involving [place] coronary artery of [place] heart, angina presence unspecified I25.10 Coronary Disease-Associated Artery/Lesion type: [place] artery [place] vs. transplanted heart: [place] heart Associated angina: angina presence unspecified Dyslipidemia E78.5 Adult general medical exam Z00.00 CPT Codes Advance Care Planning - Time spent: 1-15 minutes, not on file ([id number]) Advance Care Planning Date of discussion: 02/03/23 Who was present: pt and nursing home admissions director Forms completed: None Time spent: 1-15 minutes, not on file Actual minutes spent: 3 Did not discuss due to Cultural/Spiritual beliefs: No
== END 2023-02-02 17:06 | disposition home or self-care (01) ==
LOC: HO.HMGH 16:29
PROVIDERS: PCP Internal Medicine; Visit Provider Nurse Practitioner Family
DX: F41.1 Generalized anxiety disorder (principal); F33.0 Major depressive disorder, recurrent, mild; I10 Essential (primary) hypertension; I25.10 Atherosclerotic heart disease of native coronary artery without angina pectoris; E78.5 Hyperlipidemia, unspecified; Z00.00 Encounter for general adult medical examination without abnormal findings
CPT/HCPCS: 1124F; G0439

== ENCOUNTER 2023-06-22 17:12 | Outpatient (AMB) | payer MEDICARE, OTHER, SELFPAY ==
--- NOTE | 2023-06-22 17:28 | MHC.PC.OV ---
Vital Signs 06/22/23 17:29 Height 5 ft 5 in BMI Reason not done Patient refused/unable BP 110/62 Blood Pressure Location Lt brachial Position Sitting Intake Visit Reasons: F/U with Dr. 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: No Accompanied by: Self / Same As Patient Allergies bupropion Allergy (Intermediate, Verified 06/22/23 17:38) jittery Medication List - Last Reconciled 06/22/23 by Maria Luz Jackson MD aspirin (Adult Low Dose Aspirin) 81 mg PO DAILY cholecalciferol (vitamin D3) 25 mcg PO DAILY escitalopram oxalate 10 mg PO DAILY 90 days ibuprofen 800 mg PO Q6H PRN isosorbide mononitrate ER 30 mg PO DAILY ketoconazole 2% 1 appl topical BID 30 days lidocaine 5% (Lidoderm) 1 patch topical DAILY lorazepam 1 mg PO BID PRN 30 days losartan 25 mg PO DAILY metoprolol succinate ER 100 mg PO DAILY nitroglycerin 0.4 mg sublingual .PRN nystatin 1 appl topical BID simvastatin 40 mg PO BEDTIME Tobacco use date assessed: 06/22/23 Fall risk assessment: No Falls in past year Last assessed Fall Risk: 06/22/23 Dental Screening Dental Screen Date: 06/22/23 Did you have a dental visit in the last 12 months?: No Did you have a dental problem in the last 6 months where you did not have access to dental care?: No Was dental information given to patient?: Patient has dentist HPI HPI Comments History of Present Illness Details This is an 82-year-old female with hypertension, dyslipidemia, mild recurrent major depression and generalized anxiety disorder that comes today for follow-up on her conditions blood pressure stable. Lipid panel will be ordered. Depression and anxiety has been stable with escitalopram. She also take lorazepam as needed for severe anxiety and she is aware can cause addiction, sedation and memory loss. Walks with a walker for gait stability. Complains of occasional hair loss and bilateral arm pain that happens on occasion and it is relieved with [id number] acetaminophen. No chest pain or shortness of breath. No fever or cough. [facility] Medical History (Updated 06/22/23 @ 17:49 by Maria Luz Jackson MD) Cough Clavicle fracture Right shoulder pain Left shoulder pain Right knee pain OCTAVIO (generalized anxiety disorder) Mild recurrent major depression Breast mass Night sweats Fatigue HTN (hypertension) Depression with anxiety CAD (coronary artery disease) Rash Intertrigo Dyslipidemia Surgical History History of total abdominal hysterectomy and bilateral salpingo-oophorectomy History of vein stripping Family History Father CAD (coronary artery disease) CVD (cardiovascular disease) Myocardial infarction Mother CAD (coronary artery disease) Myocardial infarction CVD (cardiovascular disease) Son No problems noted. Daughter No problems noted. Social History Housing: Apartment Alcohol intake: current Alcohol intake frequency: holidays/special occasions only Patient Tobacco Use Status: Former Tobacco user e-Cigarette/Vaping Use: Never Used Second Hand Smoke Exposure: Yes service: No Current occupational status: retired Cognitive needs: Yes Hearing needs: No Vision needs: Yes Questionnaire PHQ-9 Over the last 2 weeks, how often have you been bothered by any of the following problems? 1. Little interest or pleasure in doing things: not at all 2. Feeling down, depressed, or hopeless: more than half the days 3. Trouble falling or staying asleep, or sleeping too much: not at all 4. Feeling tired or having little energy: nearly every day 5. Poor appetite or overeating: several days 6. Feeling bad about yourself - or that you are a failure or have let yourself or your family down: not at all 7. Trouble concentrating on things, such as reading the newspaper or watching television: not at all 8. Moving or speaking so slowly that other people could have noticed. Or the opposite - being so fidgety or restless that you have been moving around a lot more than usual: not at all 9. Thoughts that you would be better off or of hurting yourself in some way: not at all Total score: 6 Depression Screening Interpretation: Positive Depression Screening Follow-up: Existing condition and In treatment Depression Screening Done: Yes 66519 - PHQ-9 Billing: Yes Source: Developed by Drs. Stoney Martinez, Rizwana Manuel, Laz Walker and colleagues, with an educational presley from [employer]. Thrive Questionnaire Date Thrive assessed: 06/22/23 I am a: Patient What is your living situation today?: I have a steady place to live Within the past 12 months, did the food you bought not last and you didn't have the money to get more?: Never true Within the past 12 months, did you worry whether your food would run out before you got money to buy more?: Never true Do you have trouble paying for medicines?: No Do you have trouble getting transportation to medical appointments?: No Do you have trouble paying your heating and electricity bill?: No Do you have trouble taking care of your child, family member or friend?: No Do you have trouble with day-to-day activities such as bathing, preparing meals, shopping, managing finances, etc.?: No Are you currently unemployed and looking for a job?: No Are you interested in more education?: No Please select the resources that you would like help with: None Currently or been in a relationship where the following occur: no concerns reported THRIVE Score: 0 AUDIT C Alcohol Use Questionnaire (AUDIT-C) 1. How often do you have a drink containing alcohol?: Monthly or less 2. How many drinks containing alcohol do you have on a typical day when you are drinking?: 1 or 2 3. How often do you have six or more drinks on one occasion?: Never Total Score: 1 Score Reviewed/Action Taken: No OCTAVIO-7 AMB Questionnaire OCTAVIO-7 Date OCTAVIO - 7 assessed: 06/22/23 (pt taking anxiety medication ) Feeling nervous, anxious, or on edge: 3 = Nearly every day Not being able to stop or control worryin = Several days Worrying too much about different things: 3 = Nearly every day Trouble relaxin = More than half the days Being so restless that it is hard to sit still: 0 = Not at all Becoming easily annoyed or irritable: 0 = Not at all Feeling afraid as if something awful might happen: 1 = Several days Total OCTAVIO-7 score (0-4 normal; 5-9 mild; 10-14 moderate; 15-21 severe): 10 Source: Developed by Drs. Stoney Martinez, Laz Chavis and colleagues, with an educational presley from [employer]. OCTAVIO-7 Assessment Billing OCTAVIO-7 Assessment Tool: OCTAVIO-7 Assessment 60060 Review of Systems Const All systems reviewed & are unremarkable except as noted in HPI and below Eyes Reports no additional complaints, Denies change in vision and Denies other visual disturbances Card Denies chest pain at rest, Denies chest pain with activity, Denies edema, Denies irregular heart rhythm, Denies claudication, Denies dyspnea, Denies dyspnea on exertion, Denies orthopnea, Denies paroxysmal nocturnal dyspnea and Denies slow heart rate Resp Denies cough, Denies dyspnea and Denies dyspnea on exertion Physical exam (Primary Care) Vital Signs: Last Vital Signs BP 110/62 06/22/23 17:29 Tobacco/Smoking Status: Tobacco use Status Tobacco use date assessed 06/22/23 06/22/23 17:34 Patient Tobacco Use Status Former Tobacco user 06/22/23 17:34 e-Cigarette/Vaping Use Never Used 06/22/23 17:34 PHQ-9: PHQ-9 Score PHQ-9: Total score 6 06/22/23 17:42 Depression Screening Interpretation: Positive Depression Screening Follow-up: Existing condition and In treatment Thrive Assessment: Date of Thrive Assessment Date Thrive assessed 06/22/23 06/22/23 17:34 Currently or been in a relationship where the following occur: no concerns reported Resp Effort & Inspection: normal respiratory effort Auscultation: clear to auscultation bilaterally Cardio Jugular venous distension: no JVD Rate: regular rate Rhythm: regular rhythm Heart sounds: S1 normal heart sound present and S2 normal heart sound present Extrem General: Yes full ROM Psych Appearance: grossly normal Assessment and Plan Assessment & Plan (1) Mild recurrent major depression: Code(s): F33.0 - Major depressive disorder, recurrent, mild Plan: Continue escitalopram. (2) OCTAVIO (generalized anxiety disorder): Code(s): F41.1 - Generalized anxiety disorder Plan: Continue escitalopram. Continue lorazepam only as needed. (3) HTN (hypertension): Code(s): I10 - Essential (primary) hypertension Qualifiers: Hypertension type: essential hypertension Qualified Code(s): I10 - Essential (primary) hypertension Plan: Continue losartan. Blood pressure goal is equal or less than 130/80. (4) Dyslipidemia: Code(s): E78.5 - Hyperlipidemia, unspecified Plan: Continue statins. Repeat lipid panel. Try to follow a low-cholesterol diet. Orders: Orders Lipid Panel 06/22/23 E78.5 - Hyperlipidemia, unspecified Comprehensive [place]. Panel Fast 06/22/23 I10 - Essential (primary) hypertension Thyroid Stimulating Hormone 06/22/23 L65.9 - Nonscarring hair loss, unspecified XR DEXA axial skeleton 06/22/23 N95.9 - Unspecified menopausal and perimenopausal disorder Vitamin D 25-OH Total 06/22/23 E55.9 - Vitamin D deficiency, unspecified Vitamin B12 and Folate 06/22/23 E53.8 - Deficiency of other specified B group vitamins, R53.83 - Other fatigue Complete Blood Count Auto Diff 06/22/23 R53.83 - Other fatigue Medications: New pyrithione zinc 1% (Dandruff Shampoo (pyrithione zinc)) wet hair then apply , let stand 5 mins then rinse. Repeat. 1 appl topical 2XW 400 mL 2RF 30 days Coding Level of Care Code Est Pt Level 4 (80267) Diagnoses Mild recurrent major depression F33.0 OCTAVIO (generalized anxiety disorder) F41.1 Essential hypertension I10 Hypertension type: essential hypertension Dyslipidemia E78.5 Additional Codes OCTAVIO-7 Assessment Billing - OCTAVIO-7 Assessment Tool: OCTAVIO-7 Assessment 65492 ([id number]) Time Spent (min) 23
[2023-06-22 17:29] VITALS: BP 110/62
== END 2023-06-22 17:54 | disposition home or self-care (01) ==
PROVIDERS: PCP Internal Medicine; Visit Provider Internal Medicine
DX: I10 Essential (primary) hypertension (principal); F33.0 Major depressive disorder, recurrent, mild; F41.1 Generalized anxiety disorder; E78.5 Hyperlipidemia, unspecified
CPT/HCPCS: 99214

== ENCOUNTER 2023-11-16 15:22 | Outpatient (REF) | payer MEDICARE, OTHER, SELFPAY ==
[2023-11-16 18:35] LABS: Anion Gap 14 (12-20); Blood Urea Nitrogen 28 mg/dL (9-16); Calcium 10.5 mg/dL (8.4-10.2); Carbon Dioxide 23 mmol/L (22-29); Chloride 109 mmol/L (96-108); Estimated Glomerular Filt Rate 45; Glucose Random 87 mg/dL (60-115); Potassium 4.5 mmol/L (3.3-5.1); Sodium 141 mmol/L (135-145)
[2023-11-16 18:36] LABS: B Type Natriuretic Peptide 148 pg/mL (<100)
== END 2023-11-16 15:23 | disposition home or self-care (01) ==
LOC: HO.LAB 15:22
PROVIDERS: PCP Internal Medicine; Visit Provider Internal Medicine Cardiovascular Disease
DX: I25.10 Atherosclerotic heart disease of native coronary artery without angina pectoris (principal); M79.89 Other specified soft tissue disorders
CPT/HCPCS: 36415; 80048; 83880; 93005; 99212

== ENCOUNTER 2023-11-16 15:22 | Outpatient (AMB) | payer MEDICARE, OTHER, SELFPAY ==
--- NOTE | 2023-11-16 15:24 | MHC.OFFVIS ---
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 Allergies bupropion Allergy (Intermediate, Verified 06/22/23 17:38) jittery Medication List - Last Reconciled 11/16/23 by Murray Fuller MD aspirin (Adult Low Dose Aspirin) 81 mg PO DAILY cholecalciferol (vitamin D3) 25 mcg PO DAILY escitalopram oxalate 10 mg PO DAILY 90 days ibuprofen 800 mg PO Q6H PRN isosorbide mononitrate ER 30 mg PO DAILY ketoconazole 2% 1 appl topical BID 30 days lactulose 10 grams (15 mL) PO BID PRN 15 days lidocaine 5% (Lidoderm) 1 patch topical DAILY lorazepam 1 mg PO BID PRN 30 days losartan 25 mg PO DAILY metoprolol succinate ER 100 mg PO DAILY nitroglycerin 0.4 mg sublingual .PRN nystatin 1 appl topical BID pyrithione zinc 1% (Dandruff Shampoo (pyrithione zinc)) 1 appl topical 2XW 30 days simvastatin 40 mg PO BEDTIME HPI Comments Details: Edie comes for follow-up. She has been having increasing symptoms of leg swelling. She has think that she might be noticing more exertional shortness of breath although she says this is not 100%. She denies any exertional chest pain. Denies any orthopnea, PND. She was bothered by this leg swelling. No recent workup from cardiac perspective he has been performed. She takes all her medications. Denies any lightheadedness, syncope. [facility] Medical History Cough Clavicle fracture Right shoulder pain Left shoulder pain Right knee pain OCTAVIO (generalized anxiety disorder) Mild recurrent major depression Breast mass Night sweats Fatigue HTN (hypertension) Depression with anxiety CAD (coronary artery disease) Rash Intertrigo Dyslipidemia Surgical History History of total abdominal hysterectomy and bilateral salpingo-oophorectomy History of vein stripping Family History Father CAD (coronary artery disease) CVD (cardiovascular disease) Myocardial infarction Mother CAD (coronary artery disease) Myocardial infarction CVD (cardiovascular disease) Son No problems noted. Daughter No problems noted. Social History Housing: Apartment Alcohol intake: current Alcohol intake frequency: holidays/special occasions only Patient Tobacco Use Status: Former Tobacco user e-Cigarette/Vaping Use: Never Used Second Hand Smoke Exposure: Yes service: No Current occupational status: retired Cognitive needs: Yes Hearing needs: No Vision needs: Yes Review of Systems Const Denies chills, Denies fatigue, Denies fever(s), Denies frequent falls, Denies weakness, Denies weight gain and Denies weight loss ENT Denies dizziness Card Denies chest pain, Denies leg edema, Denies lightheadedness, Denies palpitations, Denies dyspnea, Denies dyspnea on exertion, Denies orthopnea and Denies other (loss of consciousness) Resp Denies cough, Denies dyspnea and Denies dyspnea on exertion GI Denies hematochezia and Denies change in stool character Musc Denies abnormal gait, Denies muscle weakness, Denies numbness, Denies radiating pain into limb and Denies tingling Neuro Denies abnormal gait, Denies dizziness, Denies frequent falls, Denies numbness, Denies tingling and Denies weakness Endo Denies fatigue and Denies palpitations Physical Exam Vital Signs: Last Vital Signs Pulse 87 11/16/23 15:25 BP 120/78 11/16/23 15:25 Const General: cooperative, comfortable, alert and awake Nutritional Appearance: obese Orientation/consciousness: patient oriented x3 Limitations: ambulation with walker Neck Neck: Yes trachea midline, Yes supple and Yes no JVD Resp Effort & Inspection: normal respiratory effort Auscultation: clear to auscultation bilaterally Cardio Jugular venous distension: no JVD Palpation: normal PMI Rate: regular rate Rhythm: regular rhythm Heart sounds: S1 normal heart sound present and S2 normal heart sound present Skin General skin exam: no rashes or lesions noted and ecchymosis Neuro General: patient oriented x3 and no focal motor deficits Extrem General: Yes edema (2+ below knee with bilateral spider veins and varicosities) Psych Appearance: grossly normal Office Procedures EKG Details: EKG shows normal sinus rhythm with left axis deviation with minimal voltage criteria for LVH 46764-[id number], Complete Assessment & Plan Assessment & Plan (1) Leg swelling: Code(s): M79.89 - Other specified soft tissue disorders Category: Medical Plan: Bilateral lower extremity edema which appears to be related to venous insufficiency/peripheral venous hypertension with dependent position. Incipient heart failure can not be entirely ruled out and she is at risk for the same. Will suggest a BNP and echocardiogram to further assess for the same. If she has no abnormality in these 2 tests, advised to treat this with compression venous stocking. Various treatment options were discussed. Leg elevation were discussed. She understands agrees. (2) CAD (coronary artery disease): Code(s): I25.10 - Atherosclerotic heart disease of lime coronary artery without angina pectoris Category: Medical Qualifiers: Coronary Disease-Associated Artery/Lesion type: lime artery [place] vs. transplanted heart: lime heart Associated angina: angina presence unspecified Qualified Code(s): I25.10 - Atherosclerotic heart disease of lime coronary artery without angina pectoris Plan: CAD with critical LAD disease without any symptoms angina on current dual antianginal therapy. Continue current treatment. Continue low-dose aspirin therapy. Continue statin therapy with target goal LDL less than 70 mg/dL. Encouraged to maintain activity level as tolerated. Advised to call me with any new symptoms. Advised to monitor blood pressure at home maintain a log. Goal blood pressure less than 130/84. Will follow up in the clinic in 1 year's time, sooner p.r.n.. Thank you for allowing me to partake in his care Orders: Orders CA echo transthoracic complete Today M79.89 - Other specified soft tissue disorders B Type Natriuretic Peptide Today M79.89 - Other specified soft tissue disorders Basic Metabolic Panel Today M79.89 - Other specified soft tissue disorders Coding Level of Care Code Est Pt Level 4 (07639) Diagnoses Leg swelling M79.89 Coronary artery disease involving lime coronary artery of lime heart, angina presence unspecified I25.10 Coronary Disease-Associated Artery/Lesion type: lime artery [place] vs. transplanted heart: lime heart Associated angina: angina presence unspecified CPT Codes EKG - CPT: 08591-[id number], Complete ([id number])
[2023-11-16 15:25] VITALS: BP 120/78; PULSE 87
== END 2023-11-16 15:54 | disposition home or self-care (01) ==
PROVIDERS: PCP Internal Medicine; Visit Provider Internal Medicine Cardiovascular Disease
DX: M79.89 Other specified soft tissue disorders (principal); I25.10 Atherosclerotic heart disease of native coronary artery without angina pectoris
CPT/HCPCS: 93010; 99214

== ENCOUNTER → 2023-12-07 14:55 | Outpatient (REF) | payer MEDICARE, OTHER, SELFPAY ==
--- NOTE | 2023-12-07 14:59 | CA_ITS ---
Transthoracic Echocardiogram Patient (Last, First, Middle): Edie Valdez, Gender: Female Date of : 1940 Age: 83 Procedure Date: 12/07/2023 Procedure Type: Transthoracic Echocardiogram Location: OP Height: 165.1 cm Weight: 77.11 kg BSA: 1.85 m2 Heart Rate: bpm BP: 120 / 80 mmHg Real Estate Transaction Coordinator: VIKAS Referring MD: Murray Fuller MD Symptoms: M79.89 - Other specified soft tissue disorders Study Quality: Fair ECG Rhythm: Sinus Conclusions: - The left ventricular systolic function is normal. The calculated ejection fraction is 60% by biplane method. - The left atrium is moderately dilated. - No obvious valvular pathology seen on this study. Findings Left Ventricle Normal left ventricular cavity size. The left ventricular systolic function is normal. The calculated ejection fraction is 60% by biplane method. There is no evidence of regional wall motion abnormalities. Evidence suggests grade I (mild) diastolic dysfunction. There is mild septal asymmetric hypertrophy. Right Ventricle Normal right ventricular cavity size and systolic function. Atria The left atrium is moderately dilated. The right atrium is normal in size. Aortic Valve The aortic valve was not well visualized. There is no aortic valve stenosis. There is trace (trivial) aortic valve regurgitation. Mitral Valve The mitral valve appears normal. There is no mitral valve regurgitation. There is no mitral valve stenosis. Pulmonic Valve The pulmonic valve is likely normal. Tricuspid Valve There is no tricuspid valve regurgitation. Tricuspid regurgitation envelope is inadequate for calculation of right ventricular systolic pressure. Great Vessels The sinuses of valsalva, asc aorta, and aortic arch are normal in size. Venous The inferior vena cava was not well visualized. Pericardium/Pleural There is no evidence of pericardial effusion. Prior Study Comparison No significant change compared to prior study dated: 09/03/2014. Recommendations, Care & Conclusions No obvious valvular pathology seen on this study. Measurements 2D Linear Measurements IVSd: 1.03 0.6-0.9/0.6-1.0 cm LVIDd: 3.42 3.9-5.3/4.2-5.9 cm LVIDd Index: 1.85 2.4-3.2/2.2-3.1 cm/m2 LVIDs: 2.33 2.0-3.6 cm LVPWd: 0.91 0.7-1.1 cm LV Mass: 118.10 67-162/88-224 g LV Mass Index: 63.84 43-95/49-115 g/m2 LVOT Diam: 2.00 3.0+(-)1.3 cm 2D Systolic Function EF 4C: 63.90 >55% EF 2C: 53.50 >55% EF BiP: 60.30 >55% Mitral Valve MV Pk E: 0.35 MV PK A: 1.01 MV Decel Time: 127.00 E/A: 0.30 E'Lateral: 5.98 E'Medial: 4.90 E/E' Med: 7.20 E/E' Lat: 5.90 PHT: 37.00 MVA PHT: 5.95 Decel Posey: 2.78 Aortic Valve AoV Pk Uriah: 1.00 AoV Mn Uriah: 0.66 AoV VTI: 0.21 AoV Pk Grad: 4.00 Aov Mn Grad: 2.00 NORBERTO Cont.VTI: 2.76 LVOT LVOT Pk Uriah: 0.89 LVOT Mn Uriah: 0.62 LVOT VTI: 0.18 LVOT Pk Grad: 3.00 LVOT Mn Grad: 2.00 LVOT Diam: 2.00 LVOT Area: 3.14 Diastolic Function MV Pk E: 0.35 MV Pk A: 1.01 E/A: 0.30 E'Medial: 4.90 E/E' Med: 7.20 E' Laterial: 5.98 E/E' Lat: 5.90 Right Ventricle TAPSE (mm): 18.00 TVS' Uriah: 13.40 Great Vessels Aorta Sinus of Valsalva: 3.77 2.0-3.5 cm Ao Asc: 3.50 2.1-3.4 cm Ao Arch: 2.60 Updated in Other Vendor System with Status of Final Camilo Martinez MD electronically signed on 12/08/2023 12:54:25 PM with status of Final
== END ==
LOC: HO.CARD 14:55
PROVIDERS: PCP Internal Medicine; Visit Provider Internal Medicine Cardiovascular Disease
DX: R60.0 Localized edema (principal)
CPT/HCPCS: 93306

== ENCOUNTER → 2023-12-07 14:59 | Outpatient (BNV) | payer MEDICARE, OTHER, SELFPAY | PROVIDERS: PCP Internal Medicine; Visit Provider Internal Medicine | DX: I42.2 Other hypertrophic cardiomyopathy (principal); I51.89 Other ill-defined heart diseases | CPT/HCPCS: 93306 ==

== ENCOUNTER 2024-05-08 16:22 | Outpatient (AMB) | payer MEDICARE, OTHER, SELFPAY ==
--- NOTE | 2024-05-08 16:31 | A.OFFPC_ITS ---
Vital Signs 05/08/24 16:36 BMI Reason not done Patient refused/unable BP 112/62 Blood Pressure Location Lt brachial Position Sitting Intake Visit Reasons: 6mth f/u Intake Note: Patient here for a 6 month follow up Detention Attendant Required: No Accompanied by: Self / Same As Patient Allergies bupropion Allergy (Intermediate, Verified 05/08/24 16:51) jittery Medication List - Last Reconciled 05/08/24 by Maria Luz Jackson MD aspirin (Adult Low Dose Aspirin) 81 mg PO DAILY cholecalciferol (vitamin D3) 25 mcg PO DAILY escitalopram oxalate 10 mg PO DAILY 90 days furosemide (Lasix) 20 mg PO DAILY ibuprofen 800 mg PO Q6H PRN isosorbide mononitrate ER 30 mg PO DAILY ketoconazole 2% 1 appl topical BID 30 days lactulose 10 grams (15 mL) PO BID PRN 15 days lidocaine 5% (Lidoderm) 1 patch topical DAILY lorazepam 1 mg PO BID PRN 30 days losartan 25 mg PO DAILY metoprolol succinate ER 100 mg PO DAILY nitroglycerin 0.4 mg sublingual .PRN nystatin 1 appl topical BID pyrithione zinc 1% (Dandruff Shampoo (pyrithione zinc)) 1 appl topical 2XW 30 d ays simvastatin 40 mg PO BEDTIME Tobacco use date assessed: 05/08/24 Fall risk assessment: No Falls in past year Last assessed Fall Risk: 05/08/24 Dental Screening Dental Screen Date: 05/08/24 Did you have a dental visit in the last 12 months?: No Did you have a dental problem in the last 6 months where you did not have access to dental care?: No Was dental information given to patient?: Patient declined HPI HPI Comments History of Present Illness Details The patient is an 83-year-old female presenting with concerns involving hemorrhoids, hair loss, arthritis, and chronic pain. Bright red bleeding noted after defecation, possibly attributed to hemorrhoids, warrants further evaluation, including hemoglobin testing to rule out significant blood loss. Continuing hair loss was noticed after consulting with her hairdresser; consideration for thyroid dysfunction has been highlighted due to associated symptoms. The potential for arthritis, particularly rheumatoid, is being evaluated as her hands exhibit pronounced bone prominences, and she experiences joint pain. Chronic pain is reported mainly in the arms, with occasional increases in intensity. Finger dysfunction related to tendon issues has been evaluated by an natural resources specialist, who suggested surgical intervention as treatment. [facility] Medical History (Updated 05/08/24 @ 17:15 by Maria Luz Jackson MD) Cough Clavicle fracture Right shoulder pain Left shoulder pain Right knee pain OCTAVIO (generalized anxiety disorder) Mild recurrent major depression Breast mass Night sweats Fatigue HTN (hypertension) Depression with anxiety CAD (coronary artery disease) Rash Intertrigo Dyslipidemia Surgical History History of total abdominal hysterectomy and bilateral salpingo-oophorectomy History of vein stripping Family History Father CAD (coronary artery disease) CVD (cardiovascular disease) Myocardial infarction Mother CAD (coronary artery disease) Myocardial infarction CVD (cardiovascular disease) Son No problems noted. Daughter No problems noted. Social History Housing: Apartment Alcohol intake: current Alcohol intake frequency: holidays/special occasions only Patient Tobacco Use Status: Former Tobacco user e-Cigarette/Vaping Use: Never Used Second Hand Smoke Exposure: Yes service: No Current occupational status: retired Cognitive needs: Yes Hearing needs: No Vision needs: Yes Questionnaire PHQ-9 Over the last 2 weeks, how often have you been bothered by any of the following problems? 1. Little interest or pleasure in doing things: several days 2. Feeling down, depressed, or hopeless: several days 3. Trouble falling or staying asleep, or sleeping too much: more than half the days 4. Feeling tired or having little energy: several days 5. Poor appetite or overeating: not at all 6. Feeling bad about yourself - or that you are a failure or have let yourself or your family down: not at all 7. Trouble concentrating on things, such as reading the newspaper or watching television: not at all 8. Moving or speaking so slowly that other people could have noticed. Or the opposite - being so fidgety or restless that you have been moving around a lot more than usual: not at all 9. Thoughts that you would be better off or of hurting yourself in some way: not at all Total score: 5 Depression Screening Interpretation: Positive Depression Screening Follow-up: Existing condition, In treatment and Follow-up Visit Requested Depression Screening Done: Yes 94722 - PHQ-9 Billing: Yes Source: Developed by Drs. Stoney Martinez, Rizwana Manuel, Laz Walker and colleagues, with an educational presley from [employer]. Thrive Questionnaire Date Thrive assessed: 05/08/24 I am a: Patient What is your living situation today?: I have a steady place to live Within the past 12 months, did the food you bought not last and you didn't have the money to get more?: Never true Within the past 12 months, did you worry whether your food would run out before you got money to buy more?: Never true Do you have trouble paying for medicines?: No Do you have trouble getting transportation to medical appointments?: No Do you have trouble paying your heating and electricity bill?: No Do you have trouble taking care of your child, family member or friend?: No Do you have trouble with day-to-day activities such as bathing, preparing meals, shopping, managing finances, etc.?: No Are you currently unemployed and looking for a job?: No Are you interested in more education?: No Please select the resources that you would like help with: None Currently or been in a relationship where the following occur: No concerns reported THRIVE Score: 0 AUDIT C Alcohol Use Questionnaire (AUDIT-C) 1. How often do you have a drink containing alcohol?: Monthly or less 2. How many drinks containing alcohol do you have on a typical day when you are drinking?: 1 or 2 3. How often do you have six or more drinks on one occasion?: Never Total Score: 1 Score Reviewed/Action Taken: No OCTAVIO-7 AMB Questionnaire OCTAVIO-7 Date OCTAVIO - 7 assessed: 05/08/24 (pt taking anxiety medication ) Feeling nervous, anxious, or on edge: 3 = Nearly every day Not being able to stop or control worryin = Several days Worrying too much about different things: 1 = Several days Trouble relaxin = Several days Being so restless that it is hard to sit still: 0 = Not at all Becoming easily annoyed or irritable: 0 = Not at all Feeling afraid as if something awful might happen: 1 = Several days Total OCTAVIO-7 score (0-4 normal; 5-9 mild; 10-14 moderate; 15-21 severe): 7 Source: Developed by Drs. Stoney Martinez, Rizwana Manuel, Laz Walker and colleagues, with an educational presley from [employer]. OCTAVIO-7 Assessment Billing OCTAVIO-7 Assessment Tool: OCTAVIO-7 Assessment 10714 Review of Systems Const All systems reviewed & are unremarkable except as noted in HPI and below Card Denies chest pain at rest, Denies chest pain with activity, Denies edema, Denies irregular heart rhythm, Denies claudication, Denies dyspnea, Denies dyspnea on exertion, Denies orthopnea, Denies paroxysmal nocturnal dyspnea and Denies slow heart rate Resp Denies cough, Denies dyspnea and Denies dyspnea on exertion GI Denies abdominal pain, Denies change in bowel habits, Denies excessive flatus, Denies nausea and Denies vomiting Musc Reports deformity, Reports arthralgias and Reports limited range of motion Neuro Denies lack of coordination Physical exam (Primary Care) Vital Signs: Last Vital Signs BP 112/62 05/08/24 16:36 Tobacco/Smoking Status: Tobacco use Status Tobacco use date assessed 05/08/24 05/08/24 16:42 Patient Tobacco Use Status Former Tobacco user 05/08/24 16:34 e-Cigarette/Vaping Use Never Used 05/08/24 16:34 PHQ-9: PHQ-9 Score PHQ-9: Total score 5 05/08/24 16:59 Depression Screening Interpretation: Positive Depression Screening Follow-up: Existing condition, In treatment and Follow-up Visit Requested Thrive Assessment: Date of Thrive Assessment Date Thrive assessed 05/08/24 05/08/24 16:42 Currently or been in a relationship where the following occur: No concerns reported Const Limitations: ambulation with walker Cardio Jugular venous distension: no JVD Rate: regular rate Rhythm: regular rhythm Heart sounds: S1 normal heart sound present and S2 normal heart sound present Neuro General: no focal motor deficits Extrem Other: metacarpal fusion bilateral General: Yes full ROM Coding Level of Care Code Est Pt Level 4 (66270) Complex EM visit Add On G2211 Diagnoses Polyarthralgia M25.50 Bloody stools K92.1 Hair loss L65.9 Mild recurrent major depression F33.0 OCTAVIO (generalized anxiety disorder) F41.1 Dyslipidemia E78.5 Additional Codes OCTAVIO-7 Assessment Billing - OCTAVIO-7 Assessment Tool: OCTAVIO-7 Assessment 65002 ([id number]) PHQ-9 - 21870 - PHQ-9 Billing: Yes ([id number]) Time Spent (min) 23 Assessment & Plan Assessment & Plan (1) Polyarthralgia: Code(s): M25.50 - Pain in unspecified joint Category: Medical (2) Bloody stools: Code(s): K92.1 - Melena Category: Medical (3) Hair loss: Code(s): L65.9 - Nonscarring hair loss, unspecified Category: Medical (4) Mild recurrent major depression: Code(s): F33.0 - Major depressive disorder, recurrent, mild Category: Medical (5) OCTAVIO (generalized anxiety disorder): Code(s): F41.1 - Generalized anxiety disorder Category: Medical (6) Dyslipidemia: Code(s): E78.5 - Hyperlipidemia, unspecified Category: Medical Plan I will conduct a complete blood count to assess any blood loss due to hemorrhoids and tests for thyroid function and vitamin levels to investigate hair loss. Rheumatoid arthritis tests will be organized due to joint pain and deformities. The patient?s tendon dysfunction requires further orthopedic evaluation, with surgery as a possible intervention. Pain management with Tylenol will be monitored, considering adjustments if necessary. Patient was informed and verbally consented to the use of an ambient scribe for clinic note documentation during this visit. During this visit, we discussed concerns about blood loss associated with hemorrhoidal bleeding, suggesting a complete blood count to evaluate hemoglobin levels. I elaborated on the need for thyroid and vitamin level testing in response to significant hair loss. We reviewed suspected rheumatoid arthritis and agreed on rheumatological tests to clarify the cause of musculoskeletal symptoms. The options for her finger's tendon dysfunction included surgical repair, prioritizing functional recovery with a future orthopedic follow-up. Pain management was discussed, opting for current medications until further assessment. Orders: Orders Lipid Panel Today E78.5 - Hyperlipidemia, unspecified Thyroid Stimulating Hormone Today L65.9 - Nonscarring hair loss, unspecified Erythrocyte Sedimentation Rate Today M25.50 - Pain in unspecified joint Rheumatoid Factor Today M25.50 - Pain in unspecified joint Comprehensive Holloway. Panel Fast Today E78.5 - Hyperlipidemia, unspecified Complete Blood Count Auto Diff Today K92.1 - Melena Cyclic Citrullinated Peptide Today M25.50 - Pain in unspecified joint Anti DNA DS Antibody Today M25.50 - Pain in unspecified joint MARIA LUZ Reflex Titer and Pattern Today M25.50 - Pain in unspecified joint Referrals Gastroenterology Referral K92.1 - Melena Medications: New cane Use prn 1 ea 0RF M51.369 - Other intervertebral disc degeneration, lumbar region without mention of lumbar back pain or lower extremity pain Patient Instructions: - Undergo blood testing for hemoglobin, thyroid function, and vitamin levels. - Schedule and attend follow-up consults for testing results and potential treatment steps. - Monitor any significant changes in bleeding frequency or intensity. - Take Tylenol as needed for arm pain. - Keep the upcoming orthopedic appointment to discuss the surgical procedure further.
[2024-05-08 16:36] VITALS: BP 112/62
== END 2024-05-08 17:12 | disposition home or self-care (01) ==
LOC: HO.HMCH 16:23
PROVIDERS: PCP Internal Medicine; Visit Provider Internal Medicine
DX: M25.50 Pain in unspecified joint (principal); K92.1 Melena; L65.9 Nonscarring hair loss, unspecified; F33.0 Major depressive disorder, recurrent, mild; F41.1 Generalized anxiety disorder; E78.5 Hyperlipidemia, unspecified

== ENCOUNTER → 2024-05-08 16:22 | Outpatient (BNVA) | payer MEDICARE, OTHER, SELFPAY | PROVIDERS: PCP Internal Medicine; Visit Provider Internal Medicine | DX: M25.50 Pain in unspecified joint (principal); K92.1 Melena; L65.9 Nonscarring hair loss, unspecified; F33.0 Major depressive disorder, recurrent, mild; F41.1 Generalized anxiety disorder; E78.5 Hyperlipidemia, unspecified | CPT/HCPCS: 96127; 99212 ==

== ENCOUNTER 2024-11-11 15:06 | Outpatient (AMB) | payer MEDICARE, OTHER, SELFPAY ==
--- NOTE | 2024-11-11 15:23 | MHC.OFFVIS ---
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: No Allergies bupropion Allergy (Intermediate, Verified 11/11/24 16:39) jittery Medication List - Last Reconciled 11/11/24 by Murray Fuller MD aspirin (Adult Low Dose Aspirin) 81 mg PO DAILY cane Use prn cholecalciferol (vitamin D3) 25 mcg PO DAILY escitalopram oxalate 10 mg PO DAILY 90 days furosemide 20 mg PO DAILY ibuprofen 800 mg PO Q6H PRN isosorbide mononitrate ER 30 mg PO DAILY ketoconazole 2% 1 appl topical BID 30 days lorazepam 1 mg PO BID PRN 30 days losartan 25 mg PO DAILY metoprolol succinate ER 100 mg PO DAILY nitroglycerin 0.4 mg sublingual .PRN nystatin 1 appl topical BID pyrithione zinc 1% (Dandruff Shampoo (pyrithione zinc)) 1 appl topical 2XW 30 days simvastatin 40 mg PO BEDTIME HPI Comments Details: Edie comes for follow-up. She has significantly limited in his monitor of activity she performs. She walks with a walker. She does complain of occasional shortness of breath but not all the time. Denies any orthopnea, PND, leg edema. Takes her diuretic regimen on a daily basis. Denies any prolonged palpitation irregular heartbeat. She does have issue with the left finger that needs to undergo surgery. Takes all her medications. [facility] Medical History Cough Clavicle fracture Right shoulder pain Left shoulder pain Right knee pain OCTAVIO (generalized anxiety disorder) Mild recurrent major depression Breast mass Night sweats Fatigue HTN (hypertension) Depression with anxiety CAD (coronary artery disease) Rash Intertrigo Dyslipidemia Surgical History History of total abdominal hysterectomy and bilateral salpingo-oophorectomy History of vein stripping Family History Father CAD (coronary artery disease) CVD (cardiovascular disease) Myocardial infarction Mother CAD (coronary artery disease) Myocardial infarction CVD (cardiovascular disease) Son No problems noted. Daughter No problems noted. Social History Housing: Apartment Alcohol intake: current Alcohol intake frequency: holidays/special occasions only Patient Tobacco Use Status: Former Tobacco user e-Cigarette/Vaping Use: Never Used Second Hand Smoke Exposure: Yes service: No Current occupational status: retired Cognitive needs: Yes Hearing needs: No Vision needs: Yes Review of Systems Const Denies chills, Denies fatigue, Denies fever(s), Denies frequent falls, Denies weakness, Denies weight gain and Denies weight loss ENT Denies dizziness Card Denies chest pain, Denies leg edema, Denies lightheadedness, Denies palpitations, Denies dyspnea, Denies dyspnea on exertion, Denies orthopnea and Denies other (loss of consciousness) Resp Denies cough, Denies dyspnea and Denies dyspnea on exertion GI Denies hematochezia and Denies change in stool character Musc Denies abnormal gait, Denies muscle weakness, Denies numbness, Denies radiating pain into limb and Denies tingling Neuro Denies abnormal gait, Denies dizziness, Denies frequent falls, Denies numbness, Denies tingling and Denies weakness Endo Denies fatigue and Denies palpitations Physical Exam Vital Signs: Last Vital Signs Pulse 80 11/11/24 15:24 BP 120/70 11/11/24 15:24 Const General: cooperative, comfortable, alert and awake Nutritional Appearance: obese Orientation/consciousness: patient oriented x3 Limitations: ambulation with walker Neck Neck: Yes trachea midline, Yes supple and Yes no JVD Resp Effort & Inspection: normal respiratory effort Auscultation: clear to auscultation bilaterally Cardio Jugular venous distension: no JVD Palpation: normal PMI Rate: regular rate Rhythm: regular rhythm Heart sounds: S1 normal heart sound present and S2 normal heart sound present Skin General skin exam: no rashes or lesions noted and ecchymosis Neuro General: patient oriented x3 and no focal motor deficits Extrem General: Yes edema (2+ below knee with bilateral spider veins and varicosities) Psych Appearance: grossly normal Office Procedures EKG Details: EKGs shows normal sinus rhythm with left anterior fascicular block 11311-Feygfvfhheazgjkmf, Complete Assessment & Plan Assessment & Plan (1) Preoperative cardiovascular examination: Code(s): Z01.810 - Encounter for preprocedural cardiovascular examination Plan: Preoperative cardiovascular risk stratification to undergo hand surgery to a line her left little finger. I think she would be best served with regional/local anesthesia with mild sedation to pursue surgical correction rather than undergoing general anesthesia given her underlying risk factors. I would continue all her medications in the perioperative. Given regional block she would be optimized to undergo surgery with low to intermediate risk. (2) CAD (coronary artery disease): Code(s): I25.10 - Atherosclerotic heart disease of [place] coronary artery without angina pectoris Category: Medical Qualifiers: Coronary Disease-Associated Artery/Lesion type: [place] artery [place] vs. transplanted heart: [place] heart Associated angina: angina presence unspecified Qualified Code(s): I25.10 - Atherosclerotic heart disease of [place] coronary artery without angina pectoris Plan: Coronary artery disease significant mid LAD lesion of greater than 90% without any symptoms of angina at current workload. Her symptoms of angina suppressed because of her level of activity. She is currently on dual antianginal therapy with isosorbide and metoprolol which will be continued. Continue high-intensity statin therapy. Continue low-dose aspirin therapy. Overall management will be conservative as she has no symptoms currently. (3) Elevated brain natriuretic peptide (BNP) level: Code(s): R79.89 - Other specified abnormal findings of blood chemistry Category: Medical Plan: Elevated BNP level without any overt signs of congestive heart failure at current point in time. Continue current low-dose diuretic therapy. Signs and symptoms of heart failure were discussed. Avoidance of salt loading was discussed. Advised to continue aggressive blood pressure control which is currently well optimized. Advised to increase activity level as tolerated. Will follow up in the clinic in 6 months time, sooner PRN. Thank you for allowing me to partake in her care Orders: Orders CA echo transthoracic complete 6 Months R79.89 - Other specified abnormal findings of blood chemistry Coding Level of Care Code Est Pt Level 4 (31171) Complex EM visit Add On G2211 Diagnoses Preoperative cardiovascular examination Z01.810 Coronary artery disease involving sioux coronary artery of [place] heart, angina presence unspecified I25.10 Coronary Disease-Associated Artery/Lesion type: [place] artery [place] vs. transplanted heart: [place] heart Associated angina: angina presence unspecified Elevated brain natriuretic peptide (BNP) level R79.89 CPT Codes EKG - CPT: 14423-[id number], Complete ([id number])
[2024-11-11 15:24] VITALS: BP 120/70; PULSE 80
== END 2024-11-11 15:50 | disposition home or self-care (01) ==
LOC: HO.HCS 15:07
PROVIDERS: PCP Internal Medicine; Visit Provider Internal Medicine Cardiovascular Disease
DX: I25.10 Atherosclerotic heart disease of native coronary artery without angina pectoris (principal); Z01.810 Encounter for preprocedural cardiovascular examination; R79.89 Other specified abnormal findings of blood chemistry
CPT/HCPCS: 93010; 99214; G2211

== ENCOUNTER → 2024-11-11 15:06 | Outpatient (BNVA) | payer MEDICARE, OTHER, SELFPAY | PROVIDERS: PCP Internal Medicine; Visit Provider Internal Medicine Cardiovascular Disease | DX: F33.0 Major depressive disorder, recurrent, mild (principal); F41.1 Generalized anxiety disorder; I10 Essential (primary) hypertension; E78.5 Hyperlipidemia, unspecified; R53.82 Chronic fatigue, unspecified; G47.00 Insomnia, unspecified; Z13.31 Encounter for screening for depression; Z01.810 Encounter for preprocedural cardiovascular examination; I25.10 Atherosclerotic heart disease of native coronary artery without angina pectoris; R79.89 Other specified abnormal findings of blood chemistry; Z79.82 Long term (current) use of aspirin | CPT/HCPCS: 93005; 96127; 99212 ==

== ENCOUNTER 2024-11-11 16:14 | Outpatient (AMB) | payer MEDICARE, OTHER, SELFPAY ==
--- NOTE | 2024-11-11 16:20 | A.OFFPC_ITS ---
Vital Signs 11/11/24 16:21 Height 5 ft 5 in BMI Reason not done Patient refused/unable BP 130/60 Blood Pressure Location Lt brachial Position Sitting Pulse 85 Pulse Source Pulse Oximeter Temp 97.0 F Temp Source Temporal Artery Scan Pulse Oximetry (%) 94 Oxygen Delivery Method Room Air Intake Visit Reasons: depression, anxiety Intake Note: Patient is here to follow up on Depression, Anxiety. Early Childhood Education Specialist Required: No Ammonium Hydroxide Operator: Not Required per policy Accompanied by: Self / Same As Patient Allergies bupropion Allergy (Intermediate, Verified 11/11/24 17:02) jittery Medication List - Last Reconciled 11/11/24 by Maria Luz Jackson MD aspirin (Adult Low Dose Aspirin) 81 mg PO DAILY cane Use prn cholecalciferol (vitamin D3) 25 mcg PO DAILY escitalopram oxalate 10 mg PO DAILY 90 days furosemide 20 mg PO DAILY ibuprofen 800 mg PO Q6H PRN isosorbide mononitrate ER 30 mg PO DAILY ketoconazole 2% 1 appl topical BID 30 days lorazepam 1 mg PO BID PRN 30 days losartan 25 mg PO DAILY metoprolol succinate ER 100 mg PO DAILY nitroglycerin 0.4 mg sublingual .PRN nystatin 1 appl topical BID pyrithione zinc 1% (Dandruff Shampoo (pyrithione zinc)) 1 appl topical 2XW 30 days simvastatin 40 mg PO BEDTIME Tobacco use date assessed: 11/11/24 Fall risk assessment: No Falls in past year Last assessed Fall Risk: 11/11/24 Dental Screening Dental Screen Date: 11/11/24 Did you have a dental visit in the last 12 months?: No Did you have a dental problem in the last 6 months where you did not have access to dental care?: No Was dental information given to patient?: No HPI HPI Comments History of Present Illness Details The patient is an 83-year-old female presenting with hypertension, depression with anxiety, and a need for blood work follow-up. Hypertension is currently well-managed with a blood pressure of 130/60 mmHg, although past readings have shown variability. The patient is on a regimen of medications including losartan, metoprolol, and simvastatin for hypertension and hyperlipidemia, and escitalopram for depression with anxiety. She uses lorazepam as needed, aware of its potential risks. Transportation issues have hindered timely blood work, but plans are in place to address this with family assistance. The patient reports excessive sleep, prompting additional blood work to explore underlying causes. [facility] Medical History (Updated 11/11/24 @ 17:15 by Maria Luz Jackson MD) Cough Clavicle fracture Right shoulder pain Left shoulder pain Right knee pain OCTAVIO (generalized anxiety disorder) Mild recurrent major depression Breast mass Night sweats Fatigue HTN (hypertension) Depression with anxiety CAD (coronary artery disease) Rash Intertrigo Dyslipidemia Surgical History History of total abdominal hysterectomy and bilateral salpingo-oophorectomy History of vein stripping Family History Father CAD (coronary artery disease) CVD (cardiovascular disease) Myocardial infarction Mother CAD (coronary artery disease) Myocardial infarction CVD (cardiovascular disease) Son No problems noted. Daughter No problems noted. Social History Housing: Apartment Alcohol intake: current Alcohol intake frequency: holidays/special occasions only Patient Tobacco Use Status: Former Tobacco user e-Cigarette/Vaping Use: Never Used Second Hand Smoke Exposure: Yes service: No Current occupational status: retired Cognitive needs: Yes Hearing needs: No Vision needs: Yes Questionnaire PHQ-9 Over the last 2 weeks, how often have you been bothered by any of the following problems? 1. Little interest or pleasure in doing things: nearly every day 2. Feeling down, depressed, or hopeless: nearly every day 3. Trouble falling or staying asleep, or sleeping too much: several days 4. Feeling tired or having little energy: nearly every day 5. Poor appetite or overeating: more than half the days 6. Feeling bad about yourself - or that you are a failure or have let yourself or your family down: nearly every day 7. Trouble concentrating on things, such as reading the newspaper or watching television: not at all 8. Moving or speaking so slowly that other people could have noticed. Or the opposite - being so fidgety or restless that you have been moving around a lot more than usual: not at all 9. Thoughts that you would be better off or of hurting yourself in some way: not at all Total score: 15 Depression Screening Interpretation: Positive Depression Screening Follow-up: Existing condition, In treatment and Follow-up Visit Requested Depression Screening Done: Yes 35314 - PHQ-9 Billing: Yes Source: Developed by Drs. Stoney Martinez, Rizwana Manuel, Laz Walker and colleagues, with an educational presley from [employer]. Thrive Questionnaire Date Thrive assessed: 05/08/24 I am a: Patient What is your living situation today?: I have a steady place to live Within the past 12 months, did the food you bought not last and you didn't have the money to get more?: Never true Within the past 12 months, did you worry whether your food would run out before you got money to buy more?: Never true Do you have trouble paying for medicines?: No Do you have trouble getting transportation to medical appointments?: Yes Do you have trouble paying your heating and electricity bill?: No Do you have trouble taking care of your child, family member or friend?: No Do you have trouble with day-to-day activities such as bathing, preparing meals, shopping, managing finances, etc.?: No Are you currently unemployed and looking for a job?: No Are you interested in more education?: No Please select the resources that you would like help with: Transportation Currently or been in a relationship where the following occur: No concerns reported THRIVE Score: 1 AUDIT C Alcohol Use Questionnaire (AUDIT-C) 1. How often do you have a drink containing alcohol?: Monthly or less 2. How many drinks containing alcohol do you have on a typical day when you are drinking?: 1 or 2 3. How often do you have six or more drinks on one occasion?: Never Total Score: 1 OCTAVIO-7 AMB Questionnaire OCTAVIO-7 Date OCTAIVO - 7 assessed: 05/08/24 (pt taking anxiety medication ) Feeling nervous, anxious, or on edge: 1 = Several days Not being able to stop or control worryin = Several days Worrying too much about different things: 1 = Several days Trouble relaxin = Several days Being so restless that it is hard to sit still: 1 = Several days Becoming easily annoyed or irritable: 0 = Not at all Feeling afraid as if something awful might happen: 0 = Not at all Total OCTAVIO-7 score (0-4 normal; 5-9 mild; 10-14 moderate; 15-21 severe): 5 Source: Developed by Drs. Stoney Martinez, Rizwana Manuel, Laz Walker and colleagues, with an educational presley from [employer]. OCTAVIO-7 Assessment Billing OCTAVIO-7 Assessment Tool: OCTAVIO-7 Assessment 53587 Review of Systems Const All systems reviewed & are unremarkable except as noted in HPI and below Card Denies chest pain at rest, Denies chest pain with activity, Denies edema, Denies irregular heart rhythm, Denies claudication, Denies dyspnea, Denies dyspnea on exertion, Denies orthopnea, Denies paroxysmal nocturnal dyspnea and Denies slow heart rate Resp Denies cough, Denies dyspnea and Denies dyspnea on exertion GI Denies abdominal pain, Denies change in bowel habits, Denies excessive flatus, Denies nausea and Denies vomiting Denies urinary incontinence, Denies urinary hesitancy and Denies urinary urgency Musc Denies atrophy, Denies deformity and Denies limited range of motion Physical exam (Primary Care) Vital Signs: Last Vital Signs Temp 97.0 F 11/11/24 16:21 Pulse 85 11/11/24 16:21 BP 130/60 11/11/24 16:21 Pulse Ox 94 11/11/24 16:21 Oxygen Delivery Method Room Air 11/11/24 16:21 Tobacco/Smoking Status: Tobacco use Status Tobacco use date assessed 11/11/24 11/11/24 16:22 Patient Tobacco Use Status Former Tobacco user 11/11/24 16:22 e-Cigarette/Vaping Use Never Used 11/11/24 16:22 PHQ-9: PHQ-9 Score PHQ-9: Total score 15 11/11/24 17:07 Depression Screening Interpretation: Positive Depression Screening Follow-up: Existing condition, In treatment and Follow-up Visit Requested Thrive Assessment: Date of Thrive Assessment Date Thrive assessed 05/08/24 11/11/24 16:22 Currently or been in a relationship where the following occur: No concerns reported Const Limitations: ambulation with walker Resp Effort & Inspection: normal respiratory effort Auscultation: clear to auscultation bilaterally Cardio Jugular venous distension: no JVD Rate: regular rate Rhythm: regular rhythm Heart sounds: S1 normal heart sound present and S2 normal heart sound present Extrem General: Yes full ROM Coding Level of Care Code Est Pt Level 4 (94648) Complex EM visit Add On G2211 Diagnoses Chronic fatigue R53.82 Mild recurrent major depression F33.0 OCTAVIO (generalized anxiety disorder) F41.1 Essential hypertension I10 Hypertension type: essential hypertension Dyslipidemia E78.5 Additional Codes OCTAVIO-7 Assessment Billing - OCTAVIO-7 Assessment Tool: OCTAVIO-7 Assessment 14266 ([id number]) PHQ-9 - 80405 - PHQ-9 Billing: Yes ([id number]) Time Spent (min) 21 Assessment & Plan Assessment & Plan (1) Chronic fatigue: Code(s): R53.82 - Chronic fatigue, unspecified Category: Medical (2) Mild recurrent major depression: Code(s): F33.0 - Major depressive disorder, recurrent, mild Category: Medical (3) OCTAVIO (generalized anxiety disorder): Code(s): F41.1 - Generalized anxiety disorder Category: Medical (4) HTN (hypertension): Code(s): I10 - Essential (primary) hypertension Category: Medical Qualifiers: Hypertension type: essential hypertension Qualified Code(s): I10 - Essential (primary) hypertension (5) Dyslipidemia: Code(s): E78.5 - Hyperlipidemia, unspecified Category: Medical Plan Plan Patient was informed and verbally consented to the use of an ambient scribe for clinic note documentation during this visit. 1. Hypertension Hypertension is well-controlled with a blood pressure of 130/60 mmHg. Continue current medications and monitor blood pressure regularly. 2. Depression With Anxiety The patient is on escitalopram and uses lorazepam as needed. Monitor for side effects and consider alternative anxiety management strategies. 3. Hyperlipidemia The patient is on simvastatin. Ensure medication adherence and plan for fasting blood work to monitor cholesterol. 4. Insomnia The patient reports excessive sleep. Additional blood work is planned to investigate causes. Discuss sleep hygiene if symptoms persist. Orders: Orders Lipid Panel Today E78.5 - Hyperlipidemia, unspecified Vitamin D 25-OH Total Today E55.9 - Vitamin D deficiency, unspecified Vitamin B12 and Folate Today E53.8 - Deficiency of other specified B group vitamins Complete Blood Count Auto Diff Today D64.9 - Anemia, unspecified IRON PROFILE Today D64.9 - Anemia, unspecified Comprehensive [place]. Panel Fast Today I10 - Essential (primary) hypertension Thyroid Stimulating Hormone Today R53.82 - Chronic fatigue, unspecified
[2024-11-11 16:21] VITALS: BP 130/60; PULSE 85; TEMP 36.1; O2SAT 94
== END 2024-11-11 17:16 | disposition home or self-care (01) ==
LOC: HO.HMCH 16:15
PROVIDERS: PCP Internal Medicine; Visit Provider Internal Medicine
DX: R53.82 Chronic fatigue, unspecified (principal); F33.0 Major depressive disorder, recurrent, mild; F41.1 Generalized anxiety disorder; I10 Essential (primary) hypertension; E78.5 Hyperlipidemia, unspecified

== ENCOUNTER 2025-01-29 15:53 | Outpatient (AMB) | payer MEDICARE, OTHER, SELFPAY ==
--- OUTSIDE RECORDS SUMMARY | 2024-05-21 05:10 | XMS_ITS ---
Author Organization [facility] Address [address] [place] [address] Care Team Providers Care Patient Support Tech Name Role Phone Maria Luz Rivas Primary Care Provider Unavailab Stoney Vela [phone] REASON FOR VISIT MELENA Encounters Encounter Location Date Provider Diagnosis [facility] [address] [place] [address] 05/21/2024 Stoney Grant Plan Of Treatment No Information Progress Notes * NICKI RAINES EDOB:[birth year] (84 yo F)Acc No.[id number]:05/21/2024 Progress Notes Patient: NICKI BARROS Provider: Clair Grant MD :1940 A ge:83 Y S ex:Female Date:05/21/2024 Address:[address] [place], [place] [id number] Pcp:Maria Luz Jackson Subjective: * Chief Complaints: * M BIANCA * The named appointment provid er may or may not be the originator of this progress note, and it is not deemed complete until electronically signed by the appointment provider. Sign off status: Pending * Provider: Clair Grant MD Date: 0 05/21/2024 Generated for Terri campuzano/Musa/Teresaitting on: 1 04/02/2024 12:36 AM EST
--- OUTSIDE RECORDS SUMMARY | 2024-08-21 10:20 | XMS_ITS ---
Author Organization [facility] Address [address] [place] [address] Care Team Providers Care Car Retarder Operator Name Role Phone Maria Luz Rivas Primary Care Provider Unavailab Stoney Vela [phone] Encounters Encounter Location Date Provider Diagnosis [facility] [address] [place] [address] 08/21/2024 Stoney Grant Plan Of Treatment No Information Progress Notes * NICKI RAINES EDOB:[birth year] (84 yo F)Acc No.[id number]:08/21/2024 Progress Notes Patient: NICKI BARROS Provider: Clair Grant MD :1940 A ge:83 Y S ex:Female Date:08/21/2024 Address:[address] [place], [place] [id number] Pcp:Maria Luz Jackson * The named appointment provid er may or may not be the originator of this progress note, and it is not deemed complete until electronically signed by the appointment provider. Sign off status: Pending * Provider: Clair Grant MD Date: 0 08/21/2024 Generated for Terri campuzano/Musa/eTransmitting on: 1 04/02/2024 12:36 AM EST
--- OUTSIDE RECORDS SUMMARY | 2024-10-10 05:20 | XMS_ITS ---
Author Organization [facility] Address [address] [place] [address] Care Team Providers Care Carbide Grinder Name Role Phone Maria Luz Rivas Primary Care Provider Unavailab Stoney Vela [phone] REASON FOR VISIT Patient presents today for rectal bleeding Encounters Encounter Location Date Provider Diagnosis [facility] [address] [place] [address] 10/10/2024 Stoney Grant Plan Of Treatment No Information Progress Notes * NICKI RAINES EDOB:[birth year] (84 yo F)Acc No.[id number]:10/10/2024 Progress Notes Patient: NICKI BARROS Provider: Clair Grant MD :1940 A ge:83 Y S ex:Female Date:10/10/2024 Address:[address] [place], [place] [phone] Pcp:Maria Luz Jackson Subjective: * Chief Complaints: [...] 0 10/10/2024 Generated for Terri campuzano/Musa/Teresaitting on: 04/02/2024 12:36 AM EST
--- NOTE | 2025-01-29 16:06 | A.OFFPC_ITS ---
Vital Signs 01/29/25 16:08 Height 5 ft 5 in BMI Reason not done Patient refused/unable BP 120/60 Blood Pressure Location Lt brachial Position Sitting Pulse 89 Pulse Source Pulse Oximeter Temp 97.1 F Temp Source Temporal Artery Scan Pulse Oximetry (%) 94 Oxygen Delivery Method Room Air Intake Visit Reasons: Swollen glands Intake Note: Patient is here to follow up on swollen gland. Handtools Repairer Required: No Heat Treating Furnace Tender: Present Accompanied by: Friend Allergies bupropion Allergy (Intermediate, Verified 01/29/25 16:08) jittery Tobacco use date assessed: 01/29/25 Fall risk assessment: No Falls in past year Last assessed Fall Risk: 01/29/25 Dental Screening Dental Screen Date: 11/11/24 HPI HPI Comments History of Present Illness Details The patient is an 84 year old female presenting with a swelling on the right side of her face. She first noticed the swelling about a week before last week. The swelling is located near her ear and there is no swelling on the left side. Associated symptoms include intermittent pain and swelling, with the patient denying fever or chills. The pain is not constant; it was present one day but absent the next, and Tylenol helps it go away after a couple of months. Her dental history includes having dentures on the bottom and retaining four of her own teeth. She has a dentist but has not seen him in a long time. FORMERLY [facility], [facility] Medical History Cough Clavicle fracture Right shoulder pain Left shoulder pain Right knee pain OCTAVIO (generalized anxiety disorder) Mild recurrent major depression Breast mass Night sweats Fatigue HTN (hypertension) Depression with anxiety CAD (coronary artery disease) Rash Intertrigo Dyslipidemia Surgical History History of total abdominal hysterectomy and bilateral salpingo-oophorectomy History of vein stripping Family History Father CAD (coronary artery disease) CVD (cardiovascular disease) Myocardial infarction Mother CAD (coronary artery disease) Myocardial infarction CVD (cardiovascular disease) Son No problems noted. Daughter No problems noted. Social History Housing: Apartment Alcohol intake: current Alcohol intake frequency: holidays/special occasions only Patient Tobacco Use Status: Former Tobacco user e-Cigarette/Vaping Use: Never Used Second Hand Smoke Exposure: Yes service: No Current occupational status: retired Cognitive needs: Yes (Walker ) Hearing needs: No Vision needs: Yes (Glasses) Questionnaire Thrive Questionnaire Date Thrive assessed: 11/11/24 I am a: Patient What is your living situation today?: I have a steady place to live Within the past 12 months, did the food you bought not last and you didn't have the money to get more?: Never true Within the past 12 months, did you worry whether your food would run out before you got money to buy more?: Never true Do you have trouble paying for medicines?: No Do you have trouble getting transportation to medical appointments?: Yes Do you have trouble paying your heating and electricity bill?: No Do you have trouble taking care of your child, family member or friend?: No Do you have trouble with day-to-day activities such as bathing, preparing meals, shopping, managing finances, etc.?: No Are you currently unemployed and looking for a job?: No Are you interested in more education?: No Please select the resources that you would like help with: Transportation Currently or been in a relationship where the following occur: No concerns reported THRIVE Score: 1 OCTAVIO-7 AMB Questionnaire OCTAVIO-7 Date OCTAVIO - 7 assessed: 05/08/24 (pt taking anxiety medication ) Source: Developed by Drs. Stoney Martinez, Rizwana Manuel, Laz Walker and colleagues, with an educational presley from [employer]. Review of Systems Const Details: As per HPI. Physical exam (Primary Care) Vital Signs: Last Vital Signs Temp 97.1 F 01/29/25 16:08 Pulse 89 01/29/25 16:08 BP 120/60 01/29/25 16:08 Pulse Ox 94 01/29/25 16:08 Oxygen Delivery Method Room Air 01/29/25 16:08 Tobacco/Smoking Status: Tobacco use Status Tobacco use date assessed 01/29/25 01/29/25 16:15 Patient Tobacco Use Status Former Tobacco user 01/29/25 16:15 e-Cigarette/Vaping Use Never Used 01/29/25 16:15 Thrive Assessment: Date of Thrive Assessment Date Thrive assessed 11/11/24 01/29/25 16:15 Currently or been in a relationship where the following occur: No concerns reported Const Other: Pertinent findings are in BOLD GENERAL APPEARANCE NAD, activity normal for age, well developed/ well nourished, no cyanosis, pallor, or diaphoresis. EYES lids/conjunctiva normal. EARS/NOSE/THROAT Mucous membranes moist, nares normal, lips/teeth normal uvula midline without oral pharyngeal erythema, exudate or swelling TMs normal bilaterally. No lymphangitis/lymphedema. HEAD/NECK normocephalic atraumatic, no facial trauma, neck is supple. RESPIRATORY respiratory effort normal, speaks in full sentences, no tripod position, no accessory muscle use. Lungs clear to auscultation without rhonchi, wheezes, rales CARDIAC Regular rate and rhythm, no edema. ABDOMINAL Soft, ND/NT. No evidence of fluid wave. No pulsatile masses on exam, rebound tenderness, Gibbs sign or pain over Mcburney's point. MUSCLES/EXTREMITIES No abnormal range of motion, no swelling. Swelling right cheek. Oral exam normal. SKIN Warm, pink and dry. No rashes, dermatoses, petechiae or lesions. NEUROLOGICAL Speech is clear and appropriate. Normal level of consciousness. Gait and coordination are normal. 5/5 strength in all extremities. PSYCH Normal mood and affect. Judgement/competence is appropriate Coding Level of Care Code Est Pt Level 3 (74658) Diagnoses Lump on face R22.0 Time Spent (min) 20 Assessment & Plan Assessment & Plan (1) Lump on face: Code(s): R22.0 - Localized swelling, mass and lump, head Category: Medical Plan: - An infection is considered unlikely due to the absence of severe pain, fever, or chills. - An x-ray of the face will be ordered to investigate the cause of the swelling. - A CT scan will be considered if the x-ray results are inconclusive. - For symptom management, the patient was advised to use cold compresses and may take Tylenol or Motrin (ibuprofen) for pain. - The patient was advised to schedule a follow-up appointment in one week to review the results and reassess her condition. Plan I explained to the patient that her symptoms do not strongly suggest an infection, as she lacks severe pain, fever, or chills. To investigate the cause of the swelling, I have ordered an x-ray of her face. I informed her that if the x-ray is not revealing, we may need to proceed with a CT scan for a more detailed look. For symptomatic relief, I recommended using Tylenol, Motrin, and applying cold compresses to the area. I also advised her to see her dentist for a check-up. We will follow up in one week to discuss the results and her progress. Orders: Orders XR facial bones min 3V Today R22.0 - Localized swelling, mass and lump, head Medications: Refilled metoprolol succinate ER 100 mg PO DAILY 90 tabs 3RF
[2025-01-29 16:08] VITALS: BP 120/60; PULSE 89; TEMP 36.2; O2SAT 94
--- OUTSIDE RECORDS SUMMARY | 2025-01-30 00:36 | XMS_ITS | Data Portability ---
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 Treatment options have been reviewed including surgical treatment with soft tissue reconstruction of the radial MCP joint structures including the RCL and radial sagittal band. She is not interested in surgery and would like to know the nonsurgical options. She is provided a prescription for a hand therapist to construct a custom yoke orthosis. Follow-up as scheduled with me to see how she is responding to conservative treatment with the yoke orthosis. She understands the option for surgery if this does not provide satisfactory outcomes. 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 Unfortunately, the yoke splint was not effective in controlling the deformity of the digit. They understand that the next step in treatment involves a reconstruction of the radial sagittal band. We have discussed what is involved with the surgery and the anticipated recovery. They seem to be feeling like they would like to have this fixed but probably not until the summer when her son is off of work as he is a schoolteacher. Booking sheet will be completed for left small finger radial sagittal band reconstruction. They will call if and when they are ready to schedule surgery. We have discussed the postoperative recovery course for the recommended surgery. Risks of surgery include but are not limited to: Infection, bleeding, damage normal tissues, need for future surgeries, and recurrent or recalcitrant symptoms after surgery. Questions asked and answered to the patient's satisfaction; surgery to be scheduled with my merchandising intern. [email or web address] Not available 06/05/2024 13:35:18 Plan of Treatment Reminders Order Date Submit Date Provider Last Modified By Organization Details Last Modified Time Details Appointments None recorded. Lab None recorded. Referral occupatio nal therapist referral - OT- custom yoke orthosis- left small finger radial sagital band incompete nce 2024 025 arlin [facility] - [place], [address], [place], [address], 15:51:54 Procedures None recorded. Surgeries orthopaed ic surgery (SURG) 2024 025 [email or web address] Not available 11:00:38 Imaging XR, hand, 3 or more view - room 115 3V L hand 2024 025 arlin [facility], [address], [facility] [address], [place], [address], 15:51:54 Medication Orders None recorded. Patient TargetsNo targets recorded. Patient InstructionsNo instructions recorded. Reason for Referral Occupational Therapist Refer ral for Pain of left hand OT- custom yoke orthosis- left small finger radial sagital band incompetence OT- custom yoke orthosis- left small finger radial sagital band incompetence Referring Physician: Alondra Anand, Orthopedic Surgery, Encounter Date: 04/05/2024 Results Created Date Observation Date Name Description Value Unit Range Abnormal Flag Note LastModifiedBy Organization Detail LastModifiedTime 04/05/1904/05/2024 XR, hand, 3 or more view http:/ [email or web address] ?Encry pted=s hAaTro YD8dLq bEUv6g %2BXZw aYqtaq 0bqfl% 2Fg9IQ a4ajBk vP9nXo QUaueC m3YtLR FvZlgJ JJ8mAn HZtai3 4r8775 AC0Kqb HSDUaK vKiQtr MwF INTERFACE [facility] Office [address] [facility] [address], [place], [address], 04/05/2024 14:59:24 04/05/19 25 04/05/2024 XR, hand, 3 or more view [email or web address] ?Encry pted=s hAaTro YD8dLq bEUv6g %2BXZw aYqtaq 0bqfl% 2Fg9IQ a4ajBk vP9nXo QUaueC m3YtLR FvZlgJ JJ8mAn HZtai3 3w6786 AC0Kqb HSDUaK vKiQtr MwF INTERFACE [facility] [address] [address], [place], [address], 04/05/2024 14:59:27 Result Notes Documentation Provider Name and Address Organization Details Recorded Time Xr, Hand, 3 Or More View : [email or web address] Encrypted=smTyVuwQV2vFjrM Uv6g%4LSVrfZvdll1hlar%2Fg 1KTz4oeQplV1cNfDIodgHk6Us GTGkAthBMQ3hIaZHapx97f367 5GW1KpbUOHOyIsYtTjfSnA Not Available [facility] 04/05/2024 14:59: 25 Xr, Hand, 3 Or More View : [email or web address] Encrypted=inMbVerVC2dVadV Uv6g%3WZJwqOfywt9fvti%2Fg 8QBd7imKiqG2qErKWuxgVb9Jm PUJtXfbOKA6xJpKUnue89v779 9JZ5VtrBEIPzZkXiBknBsA Not Available [facility] 04/05/2024 14:59: 27 Problems Name Problem SNOMED Code Status Onset Date Resolution Date Notes Provider Name and Address Organization Details Recorded Time No complaint s 793936443 Active Status: 'I'; Not Available [facility] 4 09:26:51 Pain of right knee joint 964730947478 100 Active 2018 Problem Code: M25.561; Problem Code Type: ICD-10; Status: 'A'; Not Available [facility] 4 11:59:13 Problem Notes None recorded. Medical Equipment None Reported. Allergies No known drug allergies Medications Name Sig Start Date Stop Date Status Note LastModified by Organization Details LastModified Time ketoconazole 2 % shampoo PLEASE SEE ATTACHED FOR DETAILED DIRECTIONS active Not Available Not Available N ot Available isosorbide mononitrate ER 30 mg tablet,exten ded release 24 hr TAKE 1 TABLET BY MOUTH EVERY DAY active Not Available Not Available No t Available metoprolol succinate ER 100 mg tablet,exten ded release 24 hr TAKE 1 TABLET BY MOUTH EVERY DAY active Not Available Not Available No t Available simvastatin 40 mg tablet TAKE 1 TABLET BY MOUTH EVERY DAY AT BEDTIME active Not Available Not Available No t Available losartan 25 mg tablet TAKE 1 TABLET BY MOUTH EVERY DAY active Not Available Not Available No t Available furosemide 20 mg tablet TAKE 1 TABLET BY MOUTH EVERY DAY active Not Available Not Available No t Available nystatin 100,000 unit/gram topical powder PLEASE SEE ATTACHED FOR DETAILED DIRECTIONS active Not Available Not Available N ot Available lorazepam 1 mg tablet TAKE 1 TABLET BY MOUTH TWICE A DAY NEEDED FOR ANXIETY FOR 30 DAYS active Not Available Not Available No t Available ketoconazole 2 % topical cream 1 APPL TOPICALLY 2 TIMES A DAY FOR 30 DAYS active Not Available Not Available Not Available escitalopram 10 mg tablet TAKE 1 TABLET BY MOUTH EVERY DAY active Not Available Not Available No t Available clobetasol 0.05 % lotion PLEASE SEE ATTACHED FOR DETAILED DIRECTIONS active Not Available Not Available N ot Available Vitals Date Recorded Body height Body mass index (BMI) Body weight Provider Name and Address Organization Details Last Updated DateTime 04/05/2024 165.1 cm 30 kg/m2 17057.63 g DARNELL NGU[facility] [place] [facility] 04/05/2024 14:47:38 Date Recorded Body height Body mass index (BMI) Body weight Provider Name and Address Organization Details Last Updated DateTime 06/05/2024 165.1 cm 30 kg/m2 91081.63 g Soraya Pacheco [facility] 06/05/2024 13:07:51 Social History None recorded. Functional Status None recorded. Mental Status None recorded. Family History Nothing Reported. Medical History No medical history recorded. Gynecological HistoryNo gynecological history recorded. Obstetrics History GPAL:G 0 P 0 0 0 0 Past Encounters Encounter ID Performer Location Encounter Start Date Encounter Closed Date Diagnosis/Indication Diagnosis SNOMED-CT Code Diagnosis ICD10 Code Diagnosis IMO Codes Diagnosis Note [id number] MD LAYNE Saavedra [address] [place] [address] 04/05/2024 14:00:12 04/23/2024 15:51:54 Pain of left hand 8074252193 33667 M79.046 4355126 Disorder of hand 0159707 04 S63.659A [id number] MD LAYNE Saavedra [address] [place] [address] 06/05/2024 12:41:34 06/13/2024 08:26:33 Pain of left hand 3126692213 61485 M79.720 2045173 Disorder of hand 1460970 04 S63.659A [id number] Health Concerns Section Related Observation LastModified by Organization Detai ls LastModified Time None Recorded Concern Status LastModified by Organization Details LastModified Time None Recorded Advance Directives Directive None Recorded Payers Insurance Date Sequence Insurance Name Policy Number Policy Cade Covered Member ID Cade Member ID Guarantor Name 06/05/2024 1 [place]: [employer] Edie Valdez [id number] Edie Valdez 06/13/2024 2 [facility] INDEMNITY PLAN (INDEMNITY) [id number] Edie Valdez [id number] Edie Valdez Notes Date Note Type Note Provider Name and Address Organization Details Recorded Time 04/05/2024 text/html ROS as noted in the HPI Patient is an 83-year-old female seen today for a left small finger ulnar deviation deformity. She does not recall an injury when the finger became crooked and she does not have significant pain but she has noted that this has been developing where for a time, she could actively bring the small finger to the ring finger but now she has to do that passively. She denies significant challenges with numbness. She does not have a known history of rheumatoid arthritis. Alondra Anand MD [address] [facility] [address], [place], [address], [facility] 04/05/2024 16:14:02 06/05/2024 text/html ROS as noted in the HPI Patient is an 83-year-old female seen today for follow up of a left small finger ulnar deviation deformity. She does not recall an injury when the finger became crooked and she does not have significant pain but she has noted that this has been developing where for a time, she could actively bring the small finger to the ring finger but now she has to do that passively. She denies significant challenges with numbness. She does not have a known history of rheumatoid arthritisShe has tried the yoke splint but still has sig uln dev deformity. She is seen today with her daughter. They are here today to discuss other treatment options including surgery. Alondra Anand MD [address] [facility] [address], [place], [address], [facility] 06/05/2024 16:35:25 OBGyn Episode No OBEpisode recorded.
--- OUTSIDE RECORDS SUMMARY | 2025-01-30 00:36 | XMS_ITS | Patient Health Record ---
Author Organization [facility] Address [address] [place] [address] Care Team Providers Care Instrument Lens Inspector Name Role Phone Maria Luz Rivas Primary Care Provider UnavailStoney Mobley Unavailable [phone] Reason For Referral No Information Encounters Encounter Location Date Provider Diagnosis [facility] [address] [place] [address] 05/17/2024 Stoney Grant [facility] [address] [place] [address] 08/14/2024 Stoney rGant [facility] [address] [place] [address] 12/03/2024 Stoney Grant Plan Of Treatment No Information Insurance Providers Payer Name Payer Address Payer Phone Subscriber Number Group Number Insured Name Patient Relationship to Insured Coverage Start Date Coverage End Date MEDICARE OF [place] [address] [place] [address] [id number] NICKI RAINES Self - patient is the insured [facility] [address] [place] [address] [id number] NICKI RAINES Self - patient is the insured
== END 2025-01-29 16:32 | disposition home or self-care (01) ==
LOC: HO.HMCH 15:53
PROVIDERS: PCP Internal Medicine; Visit Provider Internal Medicine
DX: R22.0 Localized swelling, mass and lump, head (principal)

== ENCOUNTER → 2025-01-29 15:53 | Outpatient (BNVA) | payer MEDICARE, OTHER, SELFPAY | PROVIDERS: PCP Internal Medicine; Visit Provider Internal Medicine | DX: R22.0 Localized swelling, mass and lump, head (principal); Z87.891 Personal history of nicotine dependence | CPT/HCPCS: 99212 ==

== ENCOUNTER 2025-01-31 12:44 | Outpatient (REF) | payer MEDICARE, OTHER, SELFPAY ==
--- OUTSIDE RECORDS SUMMARY | 2024-05-21 05:10 | XMS_ITS ---
Author Organization [facility] Address [address] [place] [address] Care Team Providers Care Java Swing Developer Name Role Phone Maria Luz Rivas Primary Care Provider Unavailab Stoney Vela [phone] REASON FOR VISIT MELENA Encounters Encounter Location Date Provider Diagnosis [facility] [address] [place] [address] 05/21/2024 Stoney Grant Plan Of Treatment No Information Progress Notes * NICKI RAINES EDOB:[birth year] (84 yo F)Acc No.[id number]:05/21/2024 Progress Notes Patient: NICKI BARROS Provider: Clair Grant MD :1940 A ge:83 Y S ex:Female Date:05/21/2024 Address:[address] [place], [place] [id number] Pcp:Maria Luz Jackson Subjective: * Chief Complaints: * M BIANCA * The named appointment provid er may or may not be the originator of this progress note, and it is not deemed complete until electronically signed by the appointment provider. Sign off status: Pending * Provider: Clair Grant MD Date: 0 05/21/2024 Generated for Terri campuzano/Musa/Ciera on: 04/03/2024 06:22 PM EST
--- OUTSIDE RECORDS SUMMARY | 2024-08-21 10:20 | XMS_ITS ---
Author Organization [facility] Address [address] [place] [address] Care Team Providers Care Catering Sous Chef Name Role Phone Maria Luz Rivas Primary Care Provider Unavailab Stoney Vela [phone] Encounters Encounter Location Date Provider Diagnosis [facility] [address] [place] [address] 08/21/2024 Stoney Grant Plan Of Treatment No Information Progress Notes * NICKI RAINES EDOB:[birth year] (84 yo F)Acc No.[id number]:08/21/2024 Progress Notes Patient: NICKI BARROS Provider: Clair Grant MD :1940 A ge:83 Y S ex:Female Date:08/21/2024 Address:[address] [place], [place] [id number] Pcp:Maria Luz Jackson * The named appointment provid er may or may not be the originator of this progress note, and it is not deemed complete until electronically signed by the appointment provider. Sign off status: Pending * Provider: Clair Grant MD Date: 0 08/21/2024 Generated for Terri campuzano/Musa/eTransmitting on: 04/03/2024 06:21 PM EST
--- OUTSIDE RECORDS SUMMARY | 2024-10-10 05:20 | XMS_ITS ---
Author Organization [facility] Address [address] [place] [address] Care Team Providers Care Financial Sales Manager Name Role Phone Maria Luz Rivas Primary Care Provider Unavailab Stoney Vela [phone] REASON FOR VISIT Patient presents today for rectal bleeding Encounters Encounter Location Date Provider Diagnosis [facility] [address] [place] [address] 10/10/2024 Stoney Grant Plan Of Treatment No Information Progress Notes * NICKI RAINES EDOB:[birth year] (84 yo F)Acc No.[id number]:10/10/2024 Progress Notes Patient: NICKI BARROS Provider: Clair Grant MD :1940 A ge:83 Y S ex:Female Date:10/10/2024 Address:[address] [place], [place] [phone] Pcp:Maria Luz Jackson Subjective: * Chief Complaints: * P atient presents today for rectal bleeding Billing Information: * Procedure Codes: * The named appointment provid er may or may not be the originator of this progress note, and it is not deemed complete until electronically signed by the appointment provider. Sign off status: Pending * Provider: Clair Grant MD Date: 0 10/10/2024 Generated for Terri campuzano/Musa/Cirea on: 04/03/2024 06:22 PM EST
--- NOTE | ~2025-01-31 | XR_ITS ---
EXAMINATION: XR FACIAL BONES CLINICAL INFORMATION: R22.0 - Localized swelling, mass and lump, head COMPARISON: None available. TECHNIQUE: 3 views of the facial bones were obtained. FINDINGS: There are no fractures identified. The nasal bones and orbits are intact. No bone lesions. The calvarium is intact. Mild hyperostosis frontalis internus. Degenerative changes of the TM joints are present. The paranasal sinuses are grossly pneumatized without fluid level or gross opacity. The nasal septum is essentially midline. The sella is normal in size. The maxilla is edentulous. There is no discrete soft tissue abnormality. XR/XR facial bones min 3V IMPRESSION: No acute findings of the facial bones or soft tissues identified. Electronically signed by: Bhupendra French MD 01/31/2025 01:33 PM [facility]
--- OUTSIDE RECORDS SUMMARY | 2025-01-31 18:22 | XMS_ITS | Patient Health Record ---
Author Organization [facility] Address [address] [place] [address] Care Team Providers Care Strategy Planning Consultant Name Role Phone Maria Luz Rivas Primary Care Provider UnavailStoney Mobley Unavailable [phone] Reason For Referral No Information Encounters Encounter Location Date Provider Diagnosis [facility] [address] [place] [address] 05/17/2024 Stoney Grant [facility] [address] [place] [address] 08/14/2024 Stoney Grant [facility] [address] [place] [address] 12/03/2024 Stoney Grant Plan Of Treatment No Information Insurance Providers Payer Name Payer Address Payer Phone Subscriber Number Group Number Insured Name Patient Relationship to Insured Coverage Start Date Coverage End Date MEDICARE OF [place] [address] [place] [address] [id number] NICKI RAINES Self - patient is the insured [facility] [address] [place] [address] [id number] NICKI RAINES Self - patient is the insured
== END 2025-01-31 12:45 | disposition home or self-care (01) ==
LOC: HO.XRAY 12:44
PROVIDERS: PCP Internal Medicine; Visit Provider Internal Medicine
DX: R22.0 Localized swelling, mass and lump, head (principal)
CPT/HCPCS: 70150

== ENCOUNTER → 2025-01-31 12:51 | Outpatient (BNV) | payer MEDICARE, OTHER, SELFPAY | PROVIDERS: PCP Internal Medicine; Visit Provider Radiology Diagnostic Radiology | DX: R22.0 Localized swelling, mass and lump, head (principal) | CPT/HCPCS: 70150 ==

== ENCOUNTER 2025-02-07 16:14 | Outpatient (AMB) | payer MEDICARE, OTHER, SELFPAY ==
--- OUTSIDE RECORDS SUMMARY | 2024-05-21 05:10 | XMS_ITS ---
Author Organization [facility] Address [address] [place] [address] Care Team Providers Care Drug Coordinator Name Role Phone Maria Luz Rivas Primary Care Provider Unavailab Stoney Vela [phone] REASON FOR VISIT MELENA Encounters Encounter Location Date Provider Diagnosis [facility] [address] [place] [address] 05/21/2024 Stoney Grant Plan Of Treatment No Information Progress Notes * NICKI RAINES EDOB:[birth year] (84 yo F)Acc No.[id number]:05/21/2024 Progress Notes Patient: NICKI BARROS Provider: Clair Grant MD :1940 A ge:83 Y S ex:Female Date:05/21/2024 Address:[address] [place], [place] [id number] Pcp:Maria Luz Jackson Subjective: * Chief Complaints: * M BIANCA * The named appointment provid er may or may not be the originator of this progress note, and it is not deemed complete until electronically signed by the appointment provider. Sign off status: Pending * Provider: Clair Grant MD Date: 0 05/21/2024 Generated for Terri campuzano/Musa/Teresaitting on: 04/10/2024 04:45 PM EST
--- OUTSIDE RECORDS SUMMARY | 2024-08-21 10:20 | XMS_ITS ---
Author Organization [facility] Address [address] [place] [address] Care Team Providers Care Reimbursement Counselor Name Role Phone Maria Luz Rivas Primary Care Provider Unavailab Stoney Vela [phone] Encounters Encounter Location Date Provider Diagnosis [facility] [address] [place] [address] 08/21/2024 Stoney Grant Plan Of Treatment No Information Progress Notes * NICKI RAINES EDOB:[birth year] (84 yo F)Acc No.[id number]:08/21/2024 Progress Notes Patient: NICKI BARROS Provider: Clair Grant MD :1940 A ge:83 Y S ex:Female Date:08/21/2024 Address:[address] [place], [place] [id number] Pcp:Maria Luz Jackson * The named appointment provid er may or may not be the originator of this progress note, and it is not deemed complete until electronically signed by the appointment provider. Sign off status: Pending * Provider: Clair Grant MD Date: 0 08/21/2024 Generated for Terri campuzano/Musa/eTransmitting on: 04/10/2024 04:45 PM EST
--- OUTSIDE RECORDS SUMMARY | 2024-10-10 05:20 | XMS_ITS ---
Author Organization [facility] Address [address] [place] [address] Care Team Providers Care Production Operator Name Role Phone Maria Luz Rivas Primary Care Provider Unavailab Stoney Vela [phone] REASON FOR VISIT Patient presents today for rectal bleeding Encounters Encounter Location Date Provider Diagnosis [facility] [address] [place] [address] 10/10/2024 Stoney Grant Plan Of Treatment No Information Progress Notes * NICKI RAINES EDOB:[birth year] (84 yo F)Acc No.[id number]:10/10/2024 Progress Notes Patient: NICKI BARROS Provider: Clair Grant MD :1940 A ge:83 Y S ex:Female Date:10/10/2024 Address:[address] [place], [place] [id number] Pcp:Maria Luz Jackson Subjective: * Chief Complaints: [...] MD Date: 0 10/10/2024 Generated for Terri campuzano/Musa/Teresaitting on: 04/10/2024 04:45 PM EST
--- NOTE | 2025-02-07 16:29 | A.OFFPC_ITS ---
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 Telesales Team Leader: Not Required per policy Accompanied by: Self / Same As Patient Allergies bupropion Allergy (Intermediate, Verified 02/07/25 16:34) jittery Medication List - Last Reconciled 02/07/25 by Bekah Rossi MD aspirin (Adult Low Dose Aspirin) 81 mg PO DAILY cane Use prn cholecalciferol (vitamin D3) 25 mcg PO DAILY escitalopram oxalate 10 mg PO DAILY 90 days furosemide 20 mg PO DAILY ibuprofen 800 mg PO Q6H PRN isosorbide mononitrate ER 30 mg PO DAILY ketoconazole 2% 1 appl topical BID 30 days lorazepam 1 mg PO BID PRN 30 days losartan 25 mg PO DAILY metoprolol succinate ER 100 mg PO DAILY nitroglycerin 0.4 mg sublingual .PRN nystatin 1 appl topical BID pyrithione zinc 1% (Dandruff Shampoo (pyrithione zinc)) 1 appl topical 2XW 30 days simvastatin 40 mg PO BEDTIME Tobacco use date assessed: 02/07/25 Fall risk assessment: No Falls in past year Last assessed Fall Risk: 02/07/25 Dental Screening Dental Screen Date: 11/11/24 HPI HPI Comments History of Present Illness Details The patient is an 84 year old female presenting for follow-up of a facial lump. The lump on her right face has reportedly gone down, and she not iced this about a week ago. A prior x-ray did not show the lump. She has been taking Motrin, which may have helped as an anti-inflammatory. [facility] Medical History Cough Clavicle fracture Right shoulder pain Left shoulder pain Right knee pain OCTAVIO (generalized anxiety disorder) Mild recurrent major depression Breast mass Night sweats Fatigue HTN (hypertension) Depression with anxiety CAD (coronary artery disease) Rash Intertrigo Dyslipidemia Surgical History History of total abdominal hysterectomy and bilateral salpingo-oophorectomy History of vein stripping Family History Father CAD (coronary artery disease) CVD (cardiovascular disease) Myocardial infarction Mother CAD (coronary artery disease) Myocardial infarction CVD (cardiovascular disease) Son No problems noted. Daughter No problems noted. Social History Housing: Apartment Alcohol intake: current Alcohol intake frequency: holidays/special occasions only Patient Tobacco Use Status: Former Tobacco user e-Cigarette/Vaping Use: Never Used Second Hand Smoke Exposure: Yes service: No Current occupational status: retired Cognitive needs: Yes (Walker ) Hearing needs: No Vision needs: Yes (Glasses) Questionnaire Thrive Questionnaire Date Thrive assessed: 11/11/24 I am a: Patient What is your living situation today?: I have a steady place to live Within the past 12 months, did the food you bought not last and you didn't have the money to get more?: Never true Within the past 12 months, did you worry whether your food would run out before you got money to buy more?: Never true Do you have trouble paying for medicines?: No Do you have trouble getting transportation to medical appointments?: Yes Do you have trouble paying your heating and electricity bill?: No Do you have trouble taking care of your child, family member or friend?: No Do you have trouble with day-to-day activities such as bathing, preparing meals, shopping, managing finances, etc.?: No Are you currently unemployed and looking for a job?: No Are you interested in more education?: No Currently or been in a relationship where the following occur: No concerns reported THRIVE Score: 1 OCTAVIO-7 AMB Questionnaire OCTAVIO-7 Date OCTAVIO - 7 assessed: 05/08/24 (pt taking anxiety medication ) Source: Developed by Drs. Stoney Martinez, Rizwana Manuel, Laz Walker and colleagues, with an educational presley from [employer]. Review of Systems Const Details: As per HPI. Physical exam (Primary Care) Vital Signs: Last Vital Signs Temp 97.3 F 02/07/25 16:34 Pulse 96 02/07/25 16:34 BP 110/58 L 02/07/25 16:34 Pulse Ox 98 12/19/25 16:34 Oxygen Delivery Method Room Air 02/07/25 16:34 Tobacco/Smoking Status: Tobacco use Status Tobacco use date assessed 02/07/25 02/07/25 16:39 Patient Tobacco Use Status Former Tobacco user 02/07/25 16:29 e-Cigarette/Vaping Use Never Used 02/07/25 16:29 Thrive Assessment: Date of Thrive Assessment Date Thrive assessed 11/11/24 02/07/25 16:29 Currently or been in a relationship where the following occur: No concerns reported Const Other: Pertinent findings are in BOLD GENERAL APPEARANCE NAD, activity normal for age, well developed/ well nourished, no cyanosis, pallor, or diaphoresis. EYES lids/conjunctiva normal. EARS/NOSE/THROAT Mucous membranes moist, nares normal, lips/teeth normal uvula midline without oral pharyngeal erythema, exudate or swelling TMs normal bilaterally. No lymphangitis/lymphedema. HEAD/NECK normocephalic atraumatic, no facial trauma, neck is supple. Right Submandibular LN (3 cm). RESPIRATORY respiratory effort normal, speaks in full sentences, no tripod position, no accessory muscle use. Lungs clear to auscultation without rhonchi, wheezes, rales CARDIAC Regular rate and rhythm, no edema. ABDOMINAL Soft, ND/NT. No evidence of fluid wave. No pulsatile masses on exam, rebound tenderness, Gibbs sign or pain over Mcburney's point. MUSCLES/EXTREMITIES No abnormal range of motion, no swelling. SKIN Warm, pink and dry. No rashes, dermatoses, petechiae or lesions. NEUROLOGICAL Speech is clear and appropriate. Normal level of consciousness. Gait and coordination are normal. 5/5 strength in all extremities. PSYCH Normal mood and affect. Judgement/competence is appropriate Coding Level of Care Code Est Pt Level 3 (28784) Diagnoses Lump on face R22.0 Assessment & Plan Assessment & Plan (1) Lump on face: Code(s): R22.0 - Localized swelling, mass and lump, head Category: Medical Plan: - The lump on the right side of the face has improved and decreased in size, which may be related to taking Motrin, an anti-inflammatory medication. - A previous x-ray was negative. - While the lump does not have worrisome features, an ultrasound will be ordered for further evaluation as a precaution. - The patient will be contacted to schedule the ultrasound. - Follow-up is scheduled in two months. Plan I discussed with the patient that the lump on her face has improved significantly since her last visit. I noted that a small lump is still palpable and that the previous X-ray did not show anything. I recommended an ultrasound of the area, reassuring her that it does not have any features that seem very worrisome. I informed her that she would receive a call to schedule the procedure. We also reviewed her blood pressure, and I advised her that her reading was fine and she should continue taking her losartan. I recommended she schedule a follow-up appointment in two months. Orders: Orders US soft tiss head and/or neck Today R22.0 - Localized swelling, mass and lump, head
[2025-02-07 16:34] VITALS: BP 110/58; PULSE 96; TEMP 36.3; O2SAT 98
--- OUTSIDE RECORDS SUMMARY | 2025-02-07 16:46 | XMS_ITS | Data Portability ---
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 [email or web address] Not available 06/05/2024 13:35:18 Plan of Treatment Reminders Order Date Submit Date Provider Last Modified By Organization Details Last Modified Time Details Appointments None recorded. Lab None recorded. Referral occupatio nal therapist referral - OT- custom yoke orthosis- left small finger radial sagital band incompete nce 2024 025 arlin [facility] [place], [address], [place], [address], 15:51:54 Procedures None recorded. Surgeries orthopaed ic surgery (SURG) 2024 025 [email or web address] Not available 11:00:38 Imaging XR, hand, 3 or more view - room 115 3V L hand 2024 025 arlin [facility], [address], [facility] [address], [place], [address], 15:51:54 Medication Orders None recorded. Patient TargetsNo [...] a4ajBk vP9nXo QUaueC m3YtLR FvZlgJ JJ8mAn HZtai3 6w0943 AC0Kqb HSDUaK vKiQtr MwF INTERFACE [facility] Office [address] [facility] [address], [address], 04/05/2024 14:59:24 04/05/19 25 04/05/2024 XR, hand, 3 or more view http:/ [email or web address] ?Encry pted=s hAaTro YD8dLq bEUv6g %2BXZw aYqtaq 0bqfl% 2Fg9IQ a4ajBk vP9nXo QUaueC m3YtLR FvZlgJ JJ8mAn HZtai3 4c6085 AC0Kqb HSDUaK vKiQtr MwF INTERFACE [facility] [address] [address], [place], [address], 04/05/2024 14:59:27 Result Notes Documentation Provider Name and Address Organization Details Recorded Time Xr, Hand, 3 Or More View : [email or web address]? Encrypted=wlGuDvtJD8yUylX Uv6g%9BJTmbJibls6tgnu%2Fg 0ULr7kpAxpI7fUwJDwomBf4Rn CICqTabGQN5kVmLVymx18q904 3JG0WhdYENEqEaGyKxyTtG Not Available [facility] 04/05/2024 14:59: 25 Xr, Hand, 3 Or More View : [email or web address] Encrypted=zvPdVzzCF1tUhmG Uv6g%7XVLsbXghiu9zezt%2Fg 9QSr7zuIwdO6fNtXFxutYo6Ue RZWnJjuLPZ4fCwJGppz00i837 0MG0XgbDNNRcMvUyYdyEfL Not Available [facility] 04/05/2024 14:59: 27 Problems Name Problem SNOMED Code Status Onset Date Resolution Date Notes Provider Name and Address Organization Details Recorded Time No complaint s 430938330 Active Status: 'I'; Not Available [facility] 4 09:26:51 Pain of right knee joint 017287577438 100 Active 2018 Problem Code: M25.561; Problem Code Type: ICD-10; Status: 'A'; Not Available [facility] 4 11:59:13 Problem Notes None recorded. Medical [...] Updated DateTime 04/05/2024 165.1 cm 30 kg/m2 96438.63 g DARNELL NGUYEN [place] - [facility] 04/05/2024 14:47:38 Date Recorded Body height Body mass index (BMI) Body weight Provider Name and Address Organization Details Last Updated DateTime 06/05/2024 165.1 cm 30 kg/m2 32425.63 g Soraya Pacheco [facility] 06/05/2024 13:07:51 Social History None recorded. Functional Status None recorded. Mental Status None recorded. Family History Nothing Reported. Medical History No medical history recorded. Gynecological HistoryNo gynecological history recorded. Obstetrics History GPAL:G 0 P 0 0 0 0 Past Encounters Encounter ID Performer Location Encounter Start Date Encounter Closed Date Diagnosis/Indication Diagnosis SNOMED-CT Code Diagnosis ICD10 Code Diagnosis IMO Codes Diagnosis Note [id number] MD LAYNE Saavedra [address] [place] [address] 04/05/2024 14:00:12 04/23/2024 15:51:54 Pain of left hand 1260791283 10085 M79.829 8273708 Disorder of hand 6709279 04 S63.659A [id number] MD LAYNE Saavedra [address] [place] [place] [address] 06/05/2024 12:41:34 06/13/2024 08:26:33 Pain of left hand 2167065316 92834 M79.626 1514153 Disorder of hand 8634937 04 S63.659A 8060726 Health Concerns Section Related Observation LastModified by Organization Detai ls LastModified Time None Recorded Concern Status LastModified by Organization Details LastModified Time None Recorded Advance Directives Directive None Recorded Payers Insurance Date Sequence Insurance Name Policy Number Policy Cade Covered Member ID Cade Member ID Guarantor Name 06/05/2024 1 [place]: [employer] Edie Valdez [id number] Edie Valdez 06/13/2024 2 [facility] INDEMNITY PLAN (INDEMNITY) [id number] Edie Valdez [id number] Edie Valdez Notes Date Note Type Note [...] arthritis. Alondra Anand MD [address] [facility] [address], [place], [address], [facility] 04/05/2024 16:14:02 06/05/2024 text/html ROS as noted [...] surgery. Alondra Anand MD [address] [facility] [address], [place], [address], [facility] 06/05/2024 16:35:25 OBGyn Episode No OBEpisode recorded.
--- OUTSIDE RECORDS SUMMARY | 2025-02-07 16:46 | XMS_ITS | Patient Health Record ---
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 Name Role Phone Maria Luz Rivas Primary Care Provider UnavailStoney Mobley Unavailable [phone] Reason For Referral No Information Encounters Encounter Location Date Provider Diagnosis [facility] [address] [place] [address] 05/17/2024 Stoney Grant [facility] [address] [place] [address] 08/14/2024 Stoney Grant [facility] [address] [place] [address] 12/03/2024 Stoney Grant Plan Of Treatment No Information Insurance Providers Payer Name Payer Address Payer Phone Subscriber Number Group Number Insured Name Patient Relationship to Insured Coverage Start Date Coverage End Date MEDICARE OF [place] [address] [place] [address] [id number] NICKI RAINES Self - patient is the insured [facility] [address] [place] [address] [id number] NICKI RAINES Self - patient is the insured
== END 2025-02-07 16:49 | disposition home or self-care (01) ==
LOC: HO.HMCH 16:14
PROVIDERS: PCP Internal Medicine; Visit Provider Internal Medicine
DX: R22.0 Localized swelling, mass and lump, head (principal)

== ENCOUNTER → 2025-02-07 16:14 | Outpatient (BNVA) | payer MEDICARE, OTHER, SELFPAY | PROVIDERS: PCP Internal Medicine; Visit Provider Internal Medicine | DX: R22.0 Localized swelling, mass and lump, head (principal) | CPT/HCPCS: 99212 ==